=== PATIENT | male | born 1955 | race African-American/Black ===

== ENCOUNTER 2016-10-17 17:26 | Emergency (ER) | payer OTHER ==
[~2016-10-17] VITALS: Ht 185.4 cm; Wt 80.0 kg
[~2016-10-17 17:26] MED LIST: 1-ME1LIQ PO; ASPI81TA82 PO; CREON24 PO; LISI40TA PO; LOMO PO; METO25 PO; TAB-TAB PO; ULTR50TA PO; VITA500C PO; WELL150T PO; ZOFR4TAB3 SL
[2016-10-17 17:31] VITALS: BP 185/98; PULSE 79; RESP 12; TEMP 98.1; O2SAT 98
[2016-10-17 18:44] LABS: AUTOMATED NEUTROPHIL # 3.8 TH/MM3 (1.8-7.7); BASOPHIL % 0.8 % (0.0-2.0); EOSINOPHIL # 0.3 TH/MM3 (0-0.4); HEMO FLAGS DIFF FINAL; LYMPHOCYTE # 1.9 TH/MM3 (1.0-4.8); MEAN CELL VOLUME 83.3 FL (80.0-100.0); MEAN CORPUSCULAR HEMOGLOBIN 27.6 PG (27.0-34.0); MEAN CORPUSCULAR HGB CONC 33.2 % (32.0-36.0); MONO % 4.5 % (0.0-8.0); NEUT % 60.7 % (16.0-70.0); PLATELET COUNT 121 TH/MM3 (150-450); RED BLOOD COUNT 4.32 MIL/MM3 (4.50-5.90); WHITE BLOOD COUNT 6.3 TH/MM3 (4.0-11.0)
[2016-10-17 19:08] LABS: ANION GAP 5 MEQ/L (5-15); BICARBONATE 27.4 MEQ/L (21.0-32.0); BLOOD UREA NITROGEN 15 MG/DL (7-18); CHLORIDE 110 MEQ/L (98-107); GLOMERULAR FILTRATION RATE 106 ML/MIN (>89); POTASSIUM 3.5 MEQ/L (3.5-5.1); SODIUM (NA) 142 MEQ/L (136-145)
[2016-10-17 19:15] LABS: CREATINE KINASE 66 U/L (39-308)
[2016-10-17] MEDS ORDERED: AMLO10TA2 PO (22:38)
[2016-10-17] MEDS ORDERED: ASPI325T PO (22:38)
[2016-10-17] MEDS ORDERED: LISI40TA PO (22:38)
[2016-10-17] MEDS ORDERED: CREON24 PO (22:38)
[2016-10-17] MEDS ORDERED: SODIUM CHLORIDE 0.9% FLUSH 5 ML FLUSH IVF PRN (22:45)
[2016-10-17] MEDS ORDERED: ONDANSETRON HCL 4 MG/2 ML VIAL IV PUSH ONE (23:15)
[2016-10-17] MEDS ORDERED: HYDROmorphone HCL PF 1 MG/ML VIAL IV PUSH ONE (23:15)
[2016-10-17] MEDS ORDERED: SODIUM CHLORID 0.9% 500 ML INJ 500 ML IV ONE (23:15)
[2016-10-17 23:28] VITALS: RESP 18
[2016-10-17] MEDS ORDERED: IOHEXOL 350 MG/ML 10 ML VIAL (for RAD DIAG) IV ONE (23:33)
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
[2016-10-17 23:49] LABS: ALT (GPT) 25 U/L (12-78); AST (GOT) 19 U/L (15-37)
[2016-10-17 23:53] LABS: ALKALINE PHOSPHATASE 120 U/L (45-117); INDIRECT BILIRUBIN 0.3 MG/DL (0.0-0.8); TOTAL BILIRUBIN ADULT 0.4 MG/DL (0.2-1.0)
--- NOTE | 2016-10-18 00:04 | RADRPT ---
EXAM DATE/TIME: 10/17/2016 23:29 [place] COMPARISON: CT ABDOMEN & PELVIS W CONTRAST, October 13, 2015, 19:59. INDICATIONS : Lower abdominal pain for three days. IV CONTRAST: 95 cc Omnipaque 350 (iohexol) IV ORAL CONTRAST: No oral contrast ingested. RADIATION DOSE: 6.02 CTDIvol (mGy) MEDICAL HISTORY : Hepatitis B. Pancreatitis. Hypertension.CVA, cardiovascular disease SURGICAL HISTORY : partial pancreas removed ENCOUNTER: Initial ACUITY: 3 days PAIN SCALE: 8/10 LOCATION: lower quadrant abdomen TECHNIQUE: Volumetric scanning of the abdomen and pelvis was performed. Using automated exposure control and ad justment of the mA and/or kV according to patient size, radiation dose was kept as low as reasonably achievable to obtain optimal diagnostic quality images. FINDINGS: LOWER LUNGS: The visualized lower lungs are clear. LIVER: Homogeneous density without lesion. There is dilation of the biliary tree. There is air in the bilia ry tree. Stent in the common bile duct. SPLEEN: Borderline prominent. PANCREAS: Fullness in the pancreatic head region again noted. Extensive dilatation of the main pancreatic duct. KIDNEYS: Normal in size and shape. There is no mass, stone or hydronephrosis. Bilateral renal low densities. ADRENAL GLANDS: Within normal limits. VASCULAR: There is no aortic aneurysm. BOWEL/MESENTERY: The stomach, small bowel, and colon demonstrate no acute abnormality. Postsurgical changes in the rig ht lower quadrant. No bowel obstruction. No inflammatory changes There is no free intraperitoneal air or fluid. ABDOMINAL WALL: Within normal limits. RETROPERITONEUM: There is no lymphadenopathy. BLADDER: No wall thickening or mass. REPRODUCTIVE: Within normal limits. INGUINAL: There is no lymphadenopathy or hernia. MUSCULOSKELETAL: Within normal limits for patient age. CONCLUSION: 1. Stent in the common bile duct with air in the biliary tree. 2. Diffuse dilatation of pancreatic duct with some slight prominence of the pancreatic head but uncha nged. 3. No acute inflammatory process. Delfino Short MD on October 17, 2016 at 23:50 Board Certified Radiologist. This report was verified electronically.
[2016-10-18] MEDS ORDERED: ONDANSETRON HCL 4 MG/2 ML VIAL IV PUSH ONE (00:45)
[2016-10-18] MEDS ORDERED: SODIUM CHLORID 0.9% 500 ML INJ 500 ML IV ONE (00:45)
[2016-10-18 01:36] LABS: BACTERIA, URINE FEW /hpf; BLOOD, URINE SMALL (NEG); COMMENT (UR) CULTURE INDICATED; CULTURE IF INDICATED CULTURE INDICATED; GLUCOSE,URINE NEG (NEG); KETONE, URINE NEG (NEG); NITRITE,URINE NEG (NEG); SQUAMOUS EPITHELIAL CELL URINE 1 /hpf (0-5); URINE COLOR YELLOW (YELLW/STRAW)
[2016-10-18] MEDS ORDERED: BACT800T5 PO (01:43)
[2016-10-18] MEDS ORDERED: MIRA33504 PO (01:43)
[2016-10-18] MEDS ORDERED: SULFAMETHOXAZOLE-TRIMETHOPRIM DS 800-160 MG TAB PO ONE (01:45)
--- NOTE | 2016-10-18 13:56 | EKG ---
Date Performed: 10/17/2016 Time Performed: 18:18:59 PTAGE: 60 years EKG: Sinus rhythm WITH SINUS ARRHYTHMIA NORMAL ECG INTERPRETATION BASED ON A DEFAULT AGE OF 41 YEARS PREVIOUS TRACING : 10/13/2015 17.10 DOCTOR: Reinaldo Mckeon Interpretating Date/Time 10/18/2016 13:55:33
== END 2016-10-18 03:21 | disposition home or self-care (01) ==
LOC: NEPC 17:26
DX: N39.0 Urinary tract infection, site not specified (principal); B96.20 Unspecified Escherichia coli [E. coli] as the cause of diseases classified elsewhere; R31.9 Hematuria, unspecified; K59.00 Constipation, unspecified; I10 Essential (primary) hypertension; F17.200 Nicotine dependence, unspecified, uncomplicated; I49.8 Other specified cardiac arrhythmias
CPT/HCPCS: 74177; 80048; 80076; 81001; 82550; 83605; 83690; 84484; 85025; 86140; 87077; 87086; 87186; 93005; 96361; 96374; 96375; 96376; 99284; J1170; J2405; J7040; Q9967

== ENCOUNTER 2017-08-02 11:18 | Inpatient (IN) | payer MEDICARE, OTHER ==
[~2017-08-02] VITALS: Ht 185.4 cm; Wt 66.0 kg
[2017-08-02] VITALS (11 sets, daily range): BP systolic 110–156; BP diastolic 62–90; PULSE 90–114; RESP 18–20; TEMP 97.8–99.9; O2SAT 98–100
[~2017-08-02 11:18] MED LIST changes: -1-ME1LIQ PO; +AMLO10TA2 PO; +ASPI325T PO; -ASPI81TA82 PO; +BACT800T5 PO; -LOMO PO; -METO25 PO; +MIRA33504 PO; -TAB-TAB PO; -ULTR50TA PO; -VITA500C PO; -WELL150T PO; -ZOFR4TAB3 SL
[2017-08-02] MEDS ORDERED: SODIUM CHLOR 0.9% 1000 ML INJ 1,000 ML IV SCH ×2 (11:32→13:11)
[2017-08-02] MEDS ORDERED: ATOR20TA15 PO (11:38)
[2017-08-02] MEDS ORDERED: HYDR25TA5 PO (11:38)
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
[2017-08-02] MEDS ORDERED: MORPHINE SULFATE 4 MG/ML INJ IV PUSH ONE (11:45)
[2017-08-02] MEDS ORDERED: ONDANSETRON HCL 4 MG/2 ML VIAL IVP ONE (11:45)
[2017-08-02] MEDS ORDERED: HEPARIN SODIUM - IV 10,000 UNITS/10 ML VIAL IV PUSH STA (11:52)
[2017-08-02] MEDS ORDERED: NITROGLYCERIN 0.4 MG SL 25 TABS/BTL SL STA (11:52)
[2017-08-02] MEDS ORDERED: ASPIRIN 81 MG CHEW TAB PO STA (11:52)
[2017-08-02 12:01] LABS: AUTOMATED NEUTROPHIL # 7.5 TH/MM3 (1.8-7.7); BASOPHIL % 0.4 % (0.0-2.0); EOSINOPHIL # 0.1 TH/MM3 (0-0.4); EOSINOPHIL % 1.1 % (0.0-4.0); HEMATOCRIT 32.5 % (39.0-51.0); HEMO FLAGS DIFF FINAL; LYMPH % 10.6 % (9.0-44.0); MEAN CELL VOLUME 85.8 FL (80.0-100.0); MEAN CORPUSCULAR HEMOGLOBIN 29.5 PG (27.0-34.0); MEAN CORPUSCULAR HGB CONC 34.3 % (32.0-36.0); MONO % 8.6 % (0.0-8.0); NEUT % 79.3 % (16.0-70.0); PLATELET COUNT 153 TH/MM3 (150-450); RED BLOOD COUNT 3.79 MIL/MM3 (4.50-5.90); RED CELL DISTRIBUTION WIDTH 13.6 % (11.6-17.2); WHITE BLOOD COUNT 9.5 TH/MM3 (4.0-11.0)
[2017-08-02] MEDS ORDERED: MIDAZOLAM HCL 2 MG/2 ML VIAL ONE (12:07)
[2017-08-02] MEDS ORDERED: SODIUM CHLORID 0.9% 500 ML INJ 500 ML ONE (12:07)
[2017-08-02] MEDS ORDERED: HEPARIN-NS/PF INJ 1,000 ML ONE (12:07)
[2017-08-02] MEDS ORDERED: NITROGLYCERIN INJ 5 ML ONE (12:08)
[2017-08-02] MEDS ORDERED: HEPARIN SODIUM - IV 10,000 UNITS/10 ML VIAL ONE (12:08)
--- NOTE | 2017-08-02 12:11 | RADRPT ---
EXAM DATE/TIME: 08/02/2017 11:50 [place] COMPARISON: CHEST SINGLE AP, October 13, 2015, 17:37. INDICATIONS : Stemi alert., chest pain x 3 weeks. MEDICAL HISTORY : Hepatitis B. Pancreatitis. Hypertension. CVA SURGICAL HISTORY : partial pancreas removed ENCOUNTER: Initial ACUITY: 3 weeks PAIN SCORE: 10/10 LOCATION: Bilateral chest FINDINGS: A single view of the chest demonstrates the lungs to be symmetrically aerated without evidence of mas s, infiltrate or effusion. The cardiomediastinal contours are unremarkable. Osseous structures are intact. CONCLUSION: 1. No acute cardiopulmonary disease. Gómez Sanchez MD on August 02, 2017 at 12:09 Board Certified Radiologist. This report was verified electronically.
[2017-08-02 12:24] LABS: ALT (GPT) 166 U/L (12-78); ANION GAP 10 MEQ/L (5-15); AST (GOT) 75 U/L (15-37); BICARBONATE 24.3 MEQ/L (21.0-32.0); BLOOD UREA NITROGEN 46 MG/DL (7-18); CHLORIDE 101 MEQ/L (98-107); GLOMERULAR FILTRATION RATE 43 ML/MIN (>89); POTASSIUM 3.9 MEQ/L (3.5-5.1); SODIUM (NA) 135 MEQ/L (136-145)
[2017-08-02 12:27] LABS: ALKALINE PHOSPHATASE 340 U/L (45-117); TOTAL BILIRUBIN ADULT 0.8 MG/DL (0.2-1.0)
[2017-08-02] MEDS ORDERED: CLOPIDOGREL 300 MG TAB ONE (12:55)
[2017-08-02] MEDS ORDERED: oxyCODONE/ACETAMINOPHEN 5 MG/325 MG TAB PO PRN (13:15)
[2017-08-02] MEDS ORDERED: ATROPINE SULFATE 1 MG/ML VIAL IV PUSH PRN (13:15)
[2017-08-02] MEDS ORDERED: ACETAMINOPHEN 325 MG TAB PO PRN (13:15)
[2017-08-02] MEDS ORDERED: MISC INFORMATION XX ONE (13:15)
[2017-08-02] MEDS ORDERED: SODIUM CHLOR 0.9% 250 ML INJ 250 ML IV PRN (13:15)
[2017-08-02] MEDS ORDERED: MORPHINE SULFATE 2 MG/ML INJ IV PUSH PRN (13:15)
[2017-08-02] MEDS ORDERED: ONDANSETRON HCL 4 MG/2 ML VIAL IV PUSH PRN (13:15)
--- NOTE | 2017-08-02 13:27 | CATHPROC ---
[employer] HIS Report Study Information Study Number Admission Scheduled Start Study Start [id number] Aug 02 2017 11:18AM 08/02/2017 Aug 02 2017 12:05PM [place] Service Cardiac Catheterization Admit Source Facility Department Emergency department [facility] - Administration Manager Physician and Clinical Staff Initial Pollo Aguilar Form Presser aSmra Brooks,SONDRA Form Presser Marisela Dudley,SONDRA Recorder Jany Vila,RT(R) Scrub Cheryl Rich,PIANO ASSEMBLER TECH2 Procedures Performed Procedure Location (Site) Vessel Name Coronary Angiograms LCA Left Coronary Coronary Angiograms RCA Right Coronary L Heart Cath PTCA LAD Prox Left Coronary Stent LAD Prox Left Coronary Wire insertion Fem Art (right) Femoral Art Equipment Time Cellar Packer Description Size Mfg Part Number Used/Scraped [id number] 12:29 [employer] WIRE, ASAPost-i PROWATER 180CM 180CM Used *[id number] TRANSDUCER, TRUWAVE [id number] 12:07 WHITE ULLOA * Used W/STOCKCOCK *[id number] INTRODUCER SET, [id number] 12:19 [employer]. FR 5 Used MICROPUNCTURE *[id number] *[id number] *[id number] 12:07 MEDLINE INDUSTRIES PACK, CCL CUSTOM * Used *[id number] 12:35 MEDTRONIC BALLOON, 2.0 X 12MM EUPHORA 12MM Used *[id number] BALLOON, 2.75 X 12MM NC [id number] 12:43 MEDTRONIC 12MM Used EUPHORA *[id number] BALLOON, 3.0 X 8MM NC [id number] 12:46 MEDTRONIC 8MM Used EUPHORA *[id number] 12:40 MEDTRONIC STENT, 2.5 18 INTEGRITY 2.5 18 Used *[id number] 12:28 MEDTRONIC/AVE EBU 3.5 Z2 GUIDE CATHETER FR 6 Used *[id number] 12:38 [employer] MEDICAL 30 STEPH INDEFLATOR Used *[id number] 12:07 [employer] MEDICAL WIRE, 3MMJ .035 180CM 180CM Used *[id number] 12:07 NAMIC MANIFOLD, 4 PORT * Used *[id number] 12:07 NYCOMED OMNIPAQUE, 350 MG, 150ML 150ML [id number] Used [id number] 12:07 FROST MEDICAL BLANKET,WARM AIR CCL * Used *[id number] 12:15 TERUMO MEDICAL SHEATH, FR6 TERUMO (10CM) FR 6 Used *[id number] Equipment Model, Serial, Lot Number and Expiration Data Description Model Number Serial Number Lot Number Expiration Date STENT, 2.5 18 INTEGRITY [id number] 10-31-2018 History: Current Medications Medication Dosage/Unit Route Frequency Last Date/Time Taken HEPARIN Coumadin ASA History: Allergies Allergy Reaction No Known Allergies History: Risk Factors Family History of Hypertension Dyslipidemia Previous IA Previous Heart Failure Premature CAD Yes Yes No No No Prior Valve Prior PCI Prior CABG Surgery No No No Cerebrovascular Peripheral Artery Chronic Lung On Dialysis Diabetes Disease Disease Disease No No No No No History: Symptoms/Diagnosis Selection Items Chest pain History: Stress Tests Stress or Imaging Studies Performed No History: Other Current Smoker Method Packs a Day Years Used Pack Years Yes Cigarettes 1 45 45 Labs Hgb (g/dl) Platelets (thousands) 11.60-17.00 150.00-450.00 11.2 153 Glucose (mg/dl) BUN (mg/dl) Creatinine (mg/dl) BUN:Creatinine (1:x) 74.00-106.00 7.00-18.00 0.50-1.30 10.00-20.00 163 46 1.9 24.2 Na (meq/l) K (meq/l) 136.00-145.00 3.50-5.10 135 3.9 CPK-MB (ng/ML) 0.50-3.60 Not Drawn Medication Medication Total Dose (Bolus/Oral) Medication Total Dosage/Unit 1% XYLOCAINE 20 mL FENTANYL 25 mcg HEPARIN 4700 units OXYGEN 2 l/min PLAVIX 600 mg VERSED 0.5 mg Medications (Bolus/Oral) Medication Time Given Dosage/Unit Administered By Reason 08/02/2017 12:05:00 OXYGEN 2 l/min Marisela Dudley PM 2 l/min OXYGEN given in lab by Marisela Dudley, SONDRA via Nasal. 08/02/2017 12:15:00 VERSED 0.5 mg Marisela Dudley PM 0.5 mg VERSED given in lab by Marisela Dudley, SONDRA in Left Antecubital via Peripheral IV. Ordered by Pollo Doe 08/02/2017 12:16:00 FENTANYL 25 mcg Marisela Dudley 25 mcg FENTANYL given in lab by Marisela Dudley, RN in Left Antecubital via Peripheral IV. Ordered by Pollo Alfredo 08/02/2017 12:16:46 1% XYLOCAINE 20 mL Pollo Alfredo 20 mL 1% XYLOCAINE given in lab by Pollo Alfredo in Right Groin via Subcutaneous. 08/02/2017 12:28:36 HEPARIN 4700 units Pollo Alfredo 4700 units HEPARIN given in lab by Pollo Alfredo in Left Antecubital via Peripheral IV. PLAVIX 08/02/2017 1:00:00 PM 600 mg Marisela Dudley 600 mg PLAVIX given in lab by Marisela Dudley, RN via Oral. Medication (Drip) Medication Time Given Dosage/Unit Concentration/Unit Diluent (ml) Solution 08/02/2017 12:06:00 IV Solutions 50 mL (IV) NaCl .9 PM IV Solutions given in lab by Marisela Dudley, SONDRA in Right Antecubital via Peripheral IV. Pump/Drip Fl ow using NaCl .9. Initial Case Assessment Cardiovascular HR Rhythm NIBP Chest Pain 113 tachy 138/91 10 Edema Present Skin color Skin None Normal Warm Dry Circulatory - Right Pulses Dorsalis Pedis Femoral 2 2 Scale (0,1,2,3,4,d) Circulatory - Left Pulses Dorsalis Pedis Femoral 1 Scale (0,1,2,3,4,d) Neurological State Oriented to time-place- Alert Moves all extremities person Respiration - General Respiration Rate SpO2 (%) (B/min) 19 100 Final Case Assessment Cardiovascular HR Rhythm NIBP Chest Pain 107 tachy 125/85 0 Edema Present Skin color Skin None Normal Warm Dry Circulatory - Right Pulses Dorsalis Pedis Femoral 2 2 Scale (0,1,2,3,4,d) Circulatory - Left Pulses Dorsalis Pedis Femoral 1 Scale (0,1,2,3,4,d) Neurological State Oriented to time-place- Alert Moves all extremities person Respiration - General Respiration Rate SpO2 (%) O2 (lpm) (B/min) 14 100 2 Chronological Log Time Study Chronological Log 12:03:00 Patient arrived via Bed. 12:05:00 MD arrived. 12:05:00 2 l/min OXYGEN given in lab by Marisela Dudley, RN via Nasal. 12:05:17 Patient Name, D.O.B, / Armband Verified By R.N. 12:05:22 Consent signed by the physician and the patient and verified by the Administration Manager staff. 12:05:23 Pre-op and post- op instructions given; patient acknowledges understanding of instructions. 12:05:28 Patient has been NPO for Less than 6Hrs. 12:05:29 Skin Breakdown- open ulcer on left groin Vitals capture started with the following parameters, Patient=Adult, Interval=5 min, Initial Pr vpdfic=476 mmHg, 12:05:35 Deflation Rate=5 mmHg, Cuff placed on Left Arm 12:05:45 Patient Warmer Placed on the Table. 12:05:58 A # 18 IV was noted in the Antecubital (right). Grade = 0 12:05:58 A # 20 IV was noted in the Antecubital (left). Grade = 0 12:06:00 IV Solutions given in lab by Marisela Dudley, RN in Right Antecubital via Peripheral IV. Pu mp/Drip Flow using NaCl .9. 12:06:07 NH=653 bpm, WJGI=519/91 mmhg, BzO6=760.0 %, Resp=15 B/min Assessment: Initial Case, RX=947 BPM, Rhythm=tachy, NGQS=911/91 mmhg, Chest Pain=10, Edema=None , Color=Normal, Skin = Warm, Dry Right Pulses: Popeye Ped=2, Femoral=2 12:06:18 Left Pulses: Popeye Ped=1 Neurological: State=Alert, Ox3, MULLIGAN Respiration: Resp=19 B/min, GjK1=652 % 12:08:58 Right groin prepped with 2% chlorhexidine, and draped after a 3 min. waiting time. 12:11:06 QO=150 bpm, SATX=568/90 mmhg, XjA8=982.0 %, Resp=17 B/min 12:12:50 Reference ECG taken 12:12:58 Pressure channel 1 zeroed. Time Out. Correct patient, correct procedure, correct physician, power injector loaded, or not loaded with contrast with 12:15:00 surgical team present. Time Out Concurred by MD and individual staff in procedure. 0.5 mg VERSED given in lab by Marisela Dudley, SONDRA in Left Antecubital via Peripheral IV. Ordere d by Pollo Alfredo 12:15:00 G. 25 mcg FENTANYL given in lab by Marisela Dudley, SONDRA in Left Antecubital via Peripheral IV. Orde red by Juni, 12:16:00 Pollo Carroll. 12:16:03 HR=98 bpm, XYMS=310/92 mmhg, SvP7=434.0 %, Resp=16 B/min 12:16:43 Case Start 12:16:46 20 mL 1% XYLOCAINE given in lab by Pollo Alfredo in Right Groin via Subcutaneous. 12:17:56 Access site was Right Femoral Artery. 12:18:50 A INTRODUCER SET, MICROPUNCTURE FR 5 was advanced into the Fem Art (right) using the Percut aneous technique. A SHEATH, FR6 TERUMO (10CM) FR 6 was exchanged in the Fem Art (right). This was necessary in or doretha to 12:18:57 accomodate a larger catheter. 12:19:31 An injection in the Fem Art (right) was made through the SHEATH, FR6 TERUMO (10CM) FR 6. A JR 4.0 GUIDE CATHETER FR 6 was advanced over a wire. OMNIPAQUE, 350 MG, 150ML 150ML was used for 12:20:56 injections. 12:21:04 FY=406 bpm, TIJA=440/91 mmhg, OiR0=172.0 %, Resp=15 B/min Recorded Pressure: LV, ES=679, Condition=Condition 1 12:21:27 (Left Ventricle) LV 100/1/9 Recorded Pressure: LV, Ao, BP=470, Condition=Condition 1 12:21:35 (Left Ventricle) LV 100/2/8, (Aorta) Ao 105/67/85 12:22:18 The RCA was injected and visualized at various angles. OMNIPAQUE, 350 MG, 150ML 150ML used . 12:23:10 Catheter was removed A JL 4.0 INFINITI CATHETER FR 6 was advanced over a wire. OMNIPAQUE, 350 MG, 150ML 150ML was us ed for 12:23:17 injections. Recorded Pressure: Ao, KU=459, Condition=Condition 1 12:24:49 (Aorta) Ao 101/67/83 12:24:59 The LCA was injected and visualized at various angles. OMNIPAQUE, 350 MG, 150ML 150ML used . 12:26:06 IK=916 bpm, IJTC=859/76 mmhg, LxV6=522.0 %, Resp=13 B/min 12:28:36 4700 units HEPARIN given in lab by Pollo Alfredo in Left Antecubital via Peripheral I V. 12:28:46 Catheter was removed A EBU 3.5 Z2 GUIDE CATHETER FR 6 was advanced over a wire. OMNIPAQUE, 350 MG, 150ML 150ML was u sed for 12:30:16 injections. 12:31:04 AD=101 bpm, NPNR=485/81 mmhg, PvU7=322.0 %, Resp=15 B/min 12:31:57 A WIRE, ASAHI PROWATER 180CM 180CM was inserted via Fem Art (right). 12:34:34 Interventional wire has crossed the lesion 12:35:23 Activated Clotting Time Drawn 12:36:06 RK=876 bpm, IBQU=033/81 mmhg, OnW8=438.0 %, Resp=14 B/min A BALLOON, 2.0 X 12MM EUPHORA 12MM was inserted over WIRE, ASAHI PROWATER 180CM 180CM via the F em Art 12:36:32 (right). A BALLOON, 2.0 X 12MM EUPHORA 12MM over a WIRE, ASAHI PROWATER 180CM 180CM in the LAD Prox was inflated 12:37:16 using a 30 STEPH INDEFLATOR at 12 steph for 14 sec. 12:39:14 Balloon Removed. An STENT, 2.5 18 INTEGRITY 2.5 18 Bare Metal Stent was inserted through a EBU 3.5 Z2 GUIDE CATH ETER FR 6 over 12:40:18 a WIRE, ASAHI PROWATER 180CM 180CM. 12:41:05 HL=386 bpm, SMRE=363/82 mmhg, SpO2=99.0 %, Resp=15 B/min A STENT, 2.5 18 INTEGRITY 2.5 18 was deployed using a 30 STEPH INDEFLATOR at 12 atmospheres for 2 0 seconds in 12:41:46 the LAD Prox. 12:42:15 ACT (Normal Range 90-180) = 369 12:42:48 Delivery device removed A BALLOON, 2.75 X 12MM NC EUPHORA 12MM was inserted over WIRE, ASAHI PROWATER 180CM 180CM via t he Fem 12:43:55 Art (right). A BALLOON, 2.75 X 12MM NC EUPHORA 12MM over a WIRE, ASAHI PROWATER 180CM 180CM in the LAD Prox was 12:44:34 inflated using a 30 STEPH INDEFLATOR at 12 steph for 18 sec. A BALLOON, 2.75 X 12MM NC EUPHORA 12MM over a WIRE, ASAHI PROWATER 180CM 180CM in the LAD Prox was 12:45:10 inflated using a 30 STEPH INDEFLATOR at 20 steph for 18 sec. 12:46:06 HR=98 bpm, IXCY=522/78 mmhg, SpO2=99.0 %, Resp=12 B/min 12:46:09 Balloon Removed. A BALLOON, 3.0 X 8MM NC EUPHORA 8MM was inserted over WIRE, ASAHI PROWATER 180CM 180CM via the Fem Art 12:46:50 (right). A BALLOON, 3.0 X 8MM NC EUPHORA 8MM over a WIRE, ASAHI PROWATER 180CM 180CM in the LAD Prox was 12:47:08 inflated using a 30 STEPH INDEFLATOR at 14 steph for 13 sec. A BALLOON, 3.0 X 8MM NC EUPHORA 8MM over a WIRE, ASAHI PROWATER 180CM 180CM in the LAD Prox was 12:47:38 inflated using a 30 STEPH INDEFLATOR at 20 steph for 18 sec. 12:48:18 Balloon Removed. A BALLOON, 3.0 X 8MM NC EUPHORA 8MM was inserted over WIRE, ASAHI PROWATER 180CM 180CM via the Fem Art 12:50:48 (right). A BALLOON, 3.0 X 8MM NC EUPHORA 8MM over a WIRE, ASAHI PROWATER 180CM 180CM in the LAD Prox was 12:50:59 inflated using a 30 STEPH INDEFLATOR at 14 steph for 10 sec. 12:51:03 HR=99 bpm, YQCS=479/80 mmhg, FpO7=294.0 %, Resp=12 B/min A BALLOON, 3.0 X 8MM NC EUPHORA 8MM over a WIRE, ASAHI PROWATER 180CM 180CM in the LAD Prox was 12:51:22 inflated using a 30 STEPH INDEFLATOR at 20 steph for 10 sec. A BALLOON, 3.0 X 8MM NC EUPHORA 8MM over a WIRE, ASAPost-i PROWATER 180CM 180CM in the LAD Prox was 12:51:59 inflated using a 30 STEPH INDEFLATOR at 24 steph for 10 sec. 12:52:36 Balloon Removed. 12:53:32 Wire removed 12:54:08 Catheter was removed 12:54:41 Case End 12:56:04 QB=514 bpm, XPQS=377/85 mmhg, ZfR8=214 %, Resp=15 B/min 13:00:00 600 mg PLAVIX given in lab by Marisela Dudley, SONDRA via Oral. 13:01:07 JM=265 bpm, OQCX=494/85 mmhg, CaH3=369.0 %, Resp=14 B/min Assessment: Final Case, IV=934 BPM, Rhythm=tachy, CDCH=052/85 mmhg, Chest Pain=0, Edema=None, Color=Normal, Skin = Warm, Dry Right Pulses: Popeye Ped=2, Femoral=2 13:01:46 Left Pulses: Popeye Ped=1 Neurological: State=Alert, Ox3, MULLIGAN Respiration: Resp=14 B/min, VgY5=334 %, O2=2 lpm 13:02:36 In the Fem Art (right) the SHEATH, FR6 TERUMO (10CM) FR [address] by Pollo Alfredo 13:02:43 Sterile dressing applied to site 13:02:44 No case complications noted. 13:02:45 Cine recording checked. 13:02:47 Bedside Report will be given. 13:02:51 Contrast Scanned 13:02:54 A Left Heart Cath was performed. 13:06:33 YY=000 bpm, DOXT=075/87 mmhg, SpO2=99 %, Resp=15 B/min 13:11:09 IK=559 bpm, MIHY=243/80 mmhg, GdG0=516 %, Resp=14 B/min 13:16:08 OH=863 bpm, IKDM=706/88 mmhg, EkM3=002.0 %, Resp=16 B/min 13:21:07 OD=622 bpm, NEHR=727/89 mmhg, FuM4=951.0 %, Resp=13 B/min 13:26:00 [facility] - Contrast Media Used In Study Contrast Total Opened (mL) Total Used (mL) Total Wasted (mL) Omnipaque 125 125 0 End Study - Maximum Contrast Load Max Contrast Load (mL) 175.8 End Study - Radiation Exposure Fluoro Time (minutes) 7.8 End Study - Patient Disposition Complications Transferred To Interventional Outcome No Telemetry Bed successful
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
[2017-08-02] MEDS ORDERED: PILL SPLITTER OTHER PRN (15:00)
[2017-08-02] MEDS ORDERED: IOHEXOL 350 MG/ML 50 ML BTL (for Cath Lab) OTHER ONE (15:52)
[2017-08-02] MEDS ORDERED: IOHEXOL 350 MG/ML 100 ML BTL (for Cath Lab) OTHER ONE (15:52)
[2017-08-02] MEDS: METOPROLOL TARTRATE 25 MG TAB PO SCH (20:26)
[2017-08-03] VITALS (28 sets, daily range): BP systolic 115–132; BP diastolic 72–83; PULSE 79–107; RESP 16–18; TEMP 97.1–98.6; O2SAT 97–100
[2017-08-03 05:48] LABS: AUTOMATED NEUTROPHIL # 3.6 TH/MM3 (1.8-7.7); BASOPHIL % 0.5 % (0.0-2.0); EOSINOPHIL # 0.1 TH/MM3 (0-0.4); EOSINOPHIL % 1.6 % (0.0-4.0); HEMATOCRIT 26.4 % (39.0-51.0); HEMO FLAGS DIFF FINAL; LYMPH % 18.7 % (9.0-44.0); MEAN CELL VOLUME 84.7 FL (80.0-100.0); MEAN CORPUSCULAR HEMOGLOBIN 28.4 PG (27.0-34.0); MEAN CORPUSCULAR HGB CONC 33.5 % (32.0-36.0); MONO % 9.9 % (0.0-8.0); NEUT % 69.3 % (16.0-70.0); PLATELET COUNT 132 TH/MM3 (150-450); RED BLOOD COUNT 3.12 MIL/MM3 (4.50-5.90); RED CELL DISTRIBUTION WIDTH 13.7 % (11.6-17.2); WHITE BLOOD COUNT 5.2 TH/MM3 (4.0-11.0)
[2017-08-03 06:28] LABS: BICARBONATE 21.2 MEQ/L (21.0-32.0); HDL CHOLESTEROL 36.6 MG/DL (40.0-60.0)
--- NOTE | 2017-08-03 07:29 | MA ---
cc: POLLO LOW DO DATE OF PROCEDURE August 02, 2017 PROCEDURE Left heart catheterization, coronary angiogram, bare metal stent (2.5 x 18) to the LAD, moderate sedation 38 minutes. PREPROCEDURE DIAGNOSIS Acute anterior STEMI, chest pain. POSTPROCEDURE DIAGNOSIS Acute anterior STEMI, status post bare metal stent (2.5 x 18) to the LAD. MEDICATIONS 1. Versed 0.5 mg. 2. Fentanyl 25 mcg. 3. Heparin 4700 units. 4. Plavix 600 mg. CONTRAST USED 125 cc. FLUOROSCOPY 7.8 minutes MODERATE SEDATION 38 minutes ESTIMATED BLOOD LOSS 20 cc PROCEDURAL SUMMARY Marcelino Jean-Baptiste is a pleasant 61-year-old male who presented to [facility] Emergency Room on August 02, 2017, complaining of chest pain as well as abdominal pain. Upon arrival he was found to have ST elevations in the anterior leads and I was called emergently to evaluate the patient. Because of his anterior ST elevation myocardial infarction, he was taken emergently to the cardiac catheterization lab. The risks, benefits and alternatives were explained to him and he consented as such. He was brought to lab and prepped in the usual sterile fashion. The right femoral artery was accessed using a modified Seldinger technique and placement of a 6-Lithuanian sheath. This was easily aspirated and flushed. A JR-4 was advanced over a J-wire to the ascending aorta and across the aortic valve for measurement of left ventricular pressure. This was pulled back across the aortic valve showing no significant gradient of aortic stenosis. JR-4 was used for selective angiography of the right coronary artery. This was exchanged out for a JL-4 which was used for selective angiography of the left coronary artery. Please see notes below for intervention. At the end of the case the sheath was sutured in place with a plan for removal once ACT values were appropriate. 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 FINDINGS Left main is a normal-sized vessel with distal tapering of 10%. Otherwise no significant disease. It bifurcates into an LAD and circumflex. LAD is a normal-size vessel with 100% occlusion in the proximal portion. It does give off one diagonal before this with 40% ostial disease in a small vessel. Left circumflex is a normal-sized vessel with mild luminal irregularities throughout the proximal portion. It gives off two obtuse marginals with 40% ostial stenosis. RCA is a small to moderate-sized vessel with mild luminal irregularities throughout the proximal portion. Distally there is noted to be some collaterals to the distal portion of the LAD. LVEDP is 8. INTERVENTION The patient was given heparin as an anticoagulant. An EBU 3.5 guide catheter was then engaged in the left main. A Prowater wire was then advanced into the distal portion of the LAD. A Compliant balloon (2 x 12) was used to predilate the lesion. Because of the patient's questionable history of pancreatic cancer for which they now think is due to chronic pancreatitis but he continues to have workup for this, as well as multiple sphincterotomies and stent placement, I felt that a bare metal stent was more appropriate. A bare metal stent (2.5 x 18) was then advanced and inflated over the lesion. A Non-Compliant balloon (2.75 x 12) was then used to post-dilate the lesion. The ppp-lz-oshyoj portion did not seem to be expanded as well as it should be due to the size and so a Non-Compliant balloon (3 x 8) was then used to post-dilate the mid to proximal portion of the stent. Post-angiography shows a well opposed stent with no perforations or dissections. The midportion of the LAD does have a 50% lesion in an overall small vessel as well as a 90% lesion at the apex but distal to this is supplied by collaterals to the RCA. Guide catheter was removed over a J-wire. The patient was given Plavix 600 mg while in the lab. IMPRESSIONS 1. Acute anterior STEMI status post bare metal stent (2.5 x 18) to the proximal LAD which was postdilated to 3 mm. 2. Chest pain concerning for coronary insufficiency. RECOMMENDATIONS 1. Mr. Jean-Baptiste presented with acute anterior STEMI and was stented with bare metal stent. He will be recommended aspirin and Plavix therapy. 2. We will plan on placing him on beta wilson and statin therapy. 3. He previously was on an BINTA inhibitor but this will be held due to his significant acute kidney injury at this time. This can be reevaluated before discharge for consideration of placing him on BINTA inhibitor or ARB therapy. 4. We will check a 2-D echo to look at his overall left ventricular function, cardiac structure and possible valvopathies. 5. We will plan on him being in the hospital for another 48 hours post TX. Thank you for allowing me to see Marcelino Jean-Baptiste. If there are any questions please do not hesitate to call. Pollo Low DO VGP/SSB /12:47 AM /7:08 AM
[2017-08-03] MEDS ORDERED: HEPARIN SODIUM - SQ 10,000 UNITS/ML VIAL SQ SCH (09:00)
[2017-08-03] MEDS: ASPIRIN 81 MG CHEW TAB PO SCH (09:18)
[2017-08-03] MEDS: CLOPIDOGREL 75 MG TAB PO SCH (09:18)
[2017-08-03] MEDS: METOPROLOL TARTRATE 25 MG TAB PO SCH ×2 (09:20→21:21)
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
[2017-08-03] MEDS: oxyCODONE/ACETAMINOPHEN 10 MG/325 MG TAB PO PRN ×3 (10:20→21:21)
--- NOTE | 2017-08-03 11:47 | ECHRPT ---
Indication: cad CONCLUSIONS The left ventricular systolic function is severely reduced with an estimated ejection fraction of 25%. Normal left ventricular size. Mild concentric left ventricular hypertrophy. There is akinesis of the mid to distal septum, akinesis of the mid to distal inferior wall, akinesis of the distal anterior wall and apex. Structurally normal mitral valve. Mild mitral valve regurgitation. Structurally normal tricuspid valve. There is mild tricuspid valve regurgitation. The estimated pulmonary arterial pressure is 64 mmHg. BP: 156 / 90 HR: Rhythm: MEASUREMENTS (Male / Female) Normal Values Technical Quality:Good 2D ECHO LV Diastolic Diameter PLAX 4.4 cm 4.2 - 5.9 / 3.9 - 5.3 cm LV Systolic Diameter PLAX 4.1 cm IVS Diastolic Thickness 1.7 cm 0.6 - 1.0 / 0.6 - 0.9 cm LVPW Diastolic Thickness 1.3 cm 0.6 - 1.0 / 0.6 - 0.9 cm LV Relative Wall Thickness 0.7 RV Internal Dim ED PLAX 2.5 cm M-MODE Aortic Root Diameter MM 3.1 cm LA Systolic Diameter MM 3.4 cm LA Ao Ratio MM 1.1 AV Cusp Separation MM 1.7 cm DOPPLER Mitral E Point Velocity 70.6 cm/s Mitral A Point Velocity 81.9 cm/s Mitral E to A Ratio 0.9 LV E' Lateral Velocity 9.3 cm/s Mitral E to LV E' Lateral Ratio 7.6 LV E' Septal Velocity 7.3 cm/s Mitral E to LV E' Septal Ratio 9.7 TR Peak Velocity 369.0 cm/s TR Peak Gradient 54.5 mmHg Right Atrial Pressure 10.0 mmHg Pulmonary Artery Systolic Pressu 64.5 mmHg Right Ventricular Systolic Press 64.5 mmHg FINDINGS LEFT VENTRICLE The left ventricular systolic function is severely reduced with an estimated ejection fraction of 2 5%. Normal left ventricular size. Mild concentric left ventricular hypertrophy. There is akinesis of the mid to distal septum, akinesis of the mid to distal inferior wall, akinesis of the distal anterior wall and apex. RIGHT VENTRICLE Normal right ventricular size and systolic function. LEFT ATRIUM The left atrial size is normal. RIGHT ATRIUM The right atrial size is normal. ATRIAL SEPTUM Normal atrial septal thickness without atrial level shunting by limited color doppler interrogation. AORTA The aortic root and proximal ascending aorta are normal in size on limited imaging. MITRAL VALVE Structurally normal mitral valve. Mild mitral valve regurgitation. AORTIC VALVE Trileaflet aortic valve. No aortic valve regurgitation. TRICUSPID VALVE Structurally normal tricuspid valve. There is mild tricuspid valve regurgitation. The estimated pulmonary arterial pressure is 64 mmHg. PULMONARY VALVE No pulmonary valve regurgitation or stenosis. VESSELS The inferior vena cava is normal in size. PERICARDIUM No pericardial effusion. Otto Riley MD (Electronically Signed) Final Date:03 August 2017 11:46
--- NOTE | 2017-08-03 13:37 | PD.CARD.PN ---
Subjective Subjective Remarks No events overnight Feels well Denies CP/Abd pain Objective Medications Current Medications Medications (Trade) Dose Ordered Sig/Jayro Route Start Time Stop Time Status Last Admin (Tylenol) 325 mg Q4H PRN PO 08/02/17 13:15 (Percocet 5-325 Mg) 1 tab Q4H PRN PO 08/02/17 13:15 (Percocet 10-325 Mg) 1 tab Q4H PRN PO 08/02/17 13:15 08/03/17 10:20 (Morphine Inj) 2 mg Q30M PRN IV PUSH 08/02/17 13:15 (Aspirin Chew) 81 mg DAILY PO 08/03/17 09:00 08/03/17 09:18 (Plavix) 75 mg DAILY PO 08/03/17 09:00 08/03/17 09:18 (Atropine Inj) 0.5 mg UNSCH PRN IV PUSH 08/02/17 13:15 (Zofran Inj) 4 mg Q4H PRN IV PUSH 08/02/17 13:15 (Lopressor) 12.5 mg BID PO 08/02/17 21:00 08/03/17 09:20 (Pill Splitter) 1 ea UNSCH PRN OTHER 08/02/17 15:00 Vital Signs / I&O Vital Signs Date Time Temp Pulse Resp B/P (MAP) Pulse Ox O2 Delivery O2 Flow Rate FiO2 08/03/17 13:11 90 08/03/17 12:02 97 08/03/17 12:02 107 08/03/17 11:00 98.5 95 18 124/76 (92) 100 08/03/17 10:00 88 08/03/17 09:00 90 08/03/17 08:00 88 08/03/17 07:49 98.5 85 18 118/76 (90) 100 08/03/17 07:00 95 08/03/17 06:00 83 08/03/17 05:01 82 08/03/17 04:05 91 08/03/17 03:25 93 08/03/17 03:24 98.6 90 18 115/72 (86) 100 08/03/17 02:18 93 08/03/17 01:01 96 08/03/17 00:05 91 08/02/17 23:14 99.9 98 18 121/74 (90) 100 08/02/17 23:00 100 08/02/17 22:10 100 08/02/17 21:00 101 08/02/17 20:00 109 08/02/17 19:15 114 08/02/17 19:15 98.1 111 18 122/76 (91) 100 08/02/17 18:08 92 08/02/17 17:06 90 08/02/17 15:11 97.8 93 18 110/62 (78) 98 08/02/17 15:11 93 I/O 08/02/17 08/02/17 08/02/17 08/03/17 08/03/17 08/03/17 07:00 15:00 23:00 07:00 15:00 23:00 Intake Total 93 ml 592 ml Output Total 400 ml 925 ml Balance -307 ml -333 ml Intake Oral 120 ml IV Total 93 ml 472 ml Output Urine Total 400 ml 925 ml # Bowel Movements 0 Physical Exam GENERAL: NAD, AAOx3 SKIN: Warm and dry. HEAD: Atraumatic. Normocephalic. EYES: Pupils equal and round. No scleral icterus. No injection or drainage. ENT: No nasal bleeding or discharge. Mucous membranes pink and moist. NECK: Trachea midline. No JVD. CARDIOVASCULAR: Regular rate and rhythm. RESPIRATORY: No accessory muscle use. Clear to auscultation. Breath sounds equal bilaterally. GASTROINTESTINAL: Abdomen soft, non-tender, nondistended. Hepatic and splenic margins not palpable. MUSCULOSKELETAL: Extremities without clubbing, cyanosis, or edema. No obvious deformities. Right femoral no hematoma/bruit, distal pulses intact NEUROLOGICAL: Awake and alert. No obvious cranial nerve deficits. Motor grossly within normal limits. Five out of 5 muscle strength in the arms and legs. Normal speech. PSYCHIATRIC: Appropriate mood and affect; insight and judgment normal. Laboratory Laboratory Tests Test 08/03/17 05:15 White Blood Count 5.2 TH/MM3 Red Blood Count 3.12 MIL/MM3 Hemoglobin 8.9 GM/DL Hematocrit 26.4 % Mean Corpuscular Volume 84.7 FL Mean Corpuscular Hemoglobin 28.4 PG Mean Corpuscular Hemoglobin Concent 33.5 % Red Cell Distribution Width 13.7 % Platelet Count 132 TH/MM3 Mean Platelet Volume 8.6 FL Neutrophils (%) (Auto) 69.3 % Lymphocytes (%) (Auto) 18.7 % Monocytes (%) (Auto) 9.9 % Eosinophils (%) (Auto) 1.6 % Basophils (%) (Auto) 0.5 % Neutrophils # (Auto) 3.6 TH/MM3 Lymphocytes # (Auto) 1.0 TH/MM3 Monocytes # (Auto) 0.5 TH/MM3 Eosinophils # (Auto) 0.1 TH/MM3 Basophils # (Auto) 0.0 TH/MM3 CBC Comment DIFF FINAL Differential Comment Blood Urea Nitrogen 38 MG/DL Creatinine 1.68 MG/DL Random Glucose 101 MG/DL Calcium Level 8.5 MG/DL Sodium Level 137 MEQ/L Potassium Level 4.0 MEQ/L Chloride Level 106 MEQ/L Carbon Dioxide Level 21.2 MEQ/L Anion Gap 10 MEQ/L Estimat Glomerular Filtration Rate 51 ML/MIN Triglycerides Level 70 MG/DL Cholesterol Level 99 MG/DL LDL Cholesterol 48 MG/DL HDL Cholesterol 36.6 MG/DL Cholesterol/HDL Ratio 2.70 RATIO Assessment and Plan Problem List: (1) STEMI (ST elevation myocardial infarction) ICD Codes: I21.3 - ST elevation (STEMI) myocardial infarction of unspecified site (2) Hypertension ICD Codes: I10 - Hypertension Status: Chronic (3) Acute kidney injury ICD Codes: N17.9 - Acute kidney failure, unspecified (4) Abdominal pain ICD Codes: R10.9 - Abdominal pain Status: Acute (5) Anemia ICD Codes: D64.9 - Anemia, unspecified (6) Pancreatic mass ICD Codes: K86.9 - Pancreatic mass Status: Chronic Assessment and Plan 1) Acute anterior STEMI s/p BMS to LAD ASA/Plavix 2) EF 25%, mild MR/TR 3) No further pain 4) Drop in Hgb, will continue to watch 5) Con't BB 6) Statin on hold due to elevated AST/ALT 7) BINTA-I on hold due to ISABELA Pollo Alfredo DO Aug 03, 2017 13:37
--- NOTE | 2017-08-03 17:14 | EKG ---
Date Performed: 08/02/2017 Time Performed: 11:42:52 PTAGE: 61 years EKG: SINUS TACHYCARDIA LOW QRS VOLTAGE IN EXTREMITY LEADS ANTEROSEPTAL MYOCARDIAL INFARCTION MAR KED ST ELEVATION, CONSIDER INFERIOR INJURY ACUTE MA THER IS WIDE SPREAD ST ELEVATION SO PERICAR DITIS IS A POSSIBILITY BUT THIS IS MOST CONSISTENT WITH AN ANTERIOR WALL INFARCT WITH INFERIOR WALL I NVOLVEMENT FROM A WRAP AROUND LEFT ANTERIOR DECENDING VESSEL. SINCE THE PRIOR TRACING THE CHANGES OF ACUTE ST SEGMENT ELEVATION INFARCTION ARE NEW. PREVIOUS TRACING : 10/17/2016 18.18 DOCTOR: Capri Toro Interpretating Date/Time 08/03/2017 17:13:46
--- NOTE | 2017-08-03 17:19 | EKG ---
Date Performed: 08/03/2017 Time Performed: 05:36:52 PTAGE: 61 years EKG: CONSIDER ACUTE ST ELEVATION [place] Sinus rhythm Left axis deviation ANTEROSEPTAL INFARCT - POSSIBLY ACUTE Inferior infarct - age undetermine d Lateral ST elevation, CONSIDER ACUTE INFARCT Low QRS voltages in limb leads Compared to prior azar ng no significant change Clinical correlation is recommended to exclude acute extensive anterior wall myocardial infarction remains fundamentally important. Abnormal ECG PREVIOUS TRACING : 08/02/2017 11.42 DOCTOR: Capri Toro Interpretating Date/Time 08/03/2017 17:18:19
[2017-08-04] VITALS (14 sets, daily range): BP systolic 110–144; BP diastolic 71–90; PULSE 76–98; RESP 16–18; TEMP 97.9–98.6; O2SAT 98–100
[2017-08-04 05:24] LABS: BASOPHIL % 0.4 % (0.0-2.0); EOSINOPHIL # 0.1 TH/MM3 (0-0.4); EOSINOPHIL % 2.3 % (0.0-4.0); HEMATOCRIT 28.2 % (39.0-51.0); HEMO FLAGS DIFF FINAL; LYMPH % 18.7 % (9.0-44.0); LYMPHOCYTE # 1.1 TH/MM3 (1.0-4.8); MEAN CELL VOLUME 85.7 FL (80.0-100.0); MEAN CORPUSCULAR HEMOGLOBIN 28.5 PG (27.0-34.0); MEAN CORPUSCULAR HGB CONC 33.3 % (32.0-36.0); MONO % 8.6 % (0.0-8.0); PLATELET COUNT 152 TH/MM3 (150-450); RED BLOOD COUNT 3.29 MIL/MM3 (4.50-5.90); RED CELL DISTRIBUTION WIDTH 13.6 % (11.6-17.2); WHITE BLOOD COUNT 5.7 TH/MM3 (4.0-11.0)
[2017-08-04 06:03] LABS: ALKALINE PHOSPHATASE 249 U/L (45-117); ALT (GPT) 86 U/L (12-78); ANION GAP 10 MEQ/L (5-15); AST (GOT) 36 U/L (15-37); BICARBONATE 21.1 MEQ/L (21.0-32.0); BLOOD UREA NITROGEN 41 MG/DL (7-18); CHLORIDE 107 MEQ/L (98-107); GLOMERULAR FILTRATION RATE 48 ML/MIN (>89); SODIUM (NA) 138 MEQ/L (136-145); TOTAL BILIRUBIN ADULT 0.3 MG/DL (0.2-1.0)
[2017-08-04] MEDS: ASPIRIN 81 MG CHEW TAB PO SCH (09:39)
[2017-08-04] MEDS: METOPROLOL TARTRATE 25 MG TAB PO SCH (09:39)
[2017-08-04] MEDS: CLOPIDOGREL 75 MG TAB PO SCH (09:39)
--- NOTE | 2017-08-04 11:47 | PD.CARD.PN ---
Subjective Subjective Remarks No events overnight Feels well, ready to go home Denies CP/Abd pain Objective Medications Current Medications Medications (Trade) Dose Ordered Sig/Jayro Route Start Time Stop Time Status Last Admin (Tylenol) 325 mg Q4H PRN PO 08/02/17 13:15 (Percocet 5-325 Mg) 1 tab Q4H PRN PO 08/02/17 13:15 (Percocet 10-325 Mg) 1 tab Q4H PRN PO 08/02/17 13:15 08/03/17 21:21 (Morphine Inj) 2 mg Q30M PRN IV PUSH 08/02/17 13:15 (Aspirin Chew) 81 mg DAILY PO 08/03/17 09:00 08/04/17 09:39 (Plavix) 75 mg DAILY PO 08/03/17 09:00 08/04/17 09:39 (Atropine Inj) 0.5 mg UNSCH PRN IV PUSH 08/02/17 13:15 (Zofran Inj) 4 mg Q4H PRN IV PUSH 08/02/17 13:15 (Lopressor) 12.5 mg BID PO 08/02/17 21:00 08/04/17 09:39 (Pill Splitter) 1 ea UNSCH PRN OTHER 08/02/17 15:00 Vital Signs / I&O Vital Signs Date Time Temp Pulse Resp B/P (MAP) Pulse Ox O2 Delivery O2 Flow Rate FiO2 08/04/17 07:20 97.9 84 18 144/86 (105) 100 08/04/17 07:20 84 08/04/17 06:57 98.6 90 16 133/90 (104) 100 08/04/17 06:00 85 08/04/17 05:00 82 08/04/17 04:00 84 08/04/17 03:00 82 08/04/17 02:00 80 08/04/17 01:00 83 08/04/17 00:00 83 08/03/17 23:40 98.6 96 16 132/82 (99) 97 08/03/17 23:00 83 08/03/17 22:00 84 08/03/17 21:00 95 08/03/17 20:00 98.5 95 16 124/83 (97) 100 08/03/17 20:00 94 08/03/17 19:00 83 08/03/17 18:13 82 08/03/17 17:00 86 08/03/17 16:10 83 08/03/17 15:13 97.1 89 16 115/76 (89) 100 08/03/17 15:00 89 08/03/17 14:33 89 08/03/17 13:11 90 08/03/17 12:02 97 08/03/17 12:02 107 I/O 08/03/17 08/03/17 08/03/17 08/04/17 08/04/17 08/04/17 07:00 15:00 23:00 07:00 15:00 23:00 Intake Total 592 ml 480 ml 240 ml Output Total 925 ml 400 ml 825 ml Balance -333 ml 80 ml -585 ml Intake Oral 120 ml 480 ml 240 ml IV Total 472 ml Output Urine Total 925 ml 400 ml 825 ml # Voids 1 # Bowel Movements 0 0 Physical Exam GENERAL: NAD, AAOx3 SKIN: Warm and dry. HEAD: Atraumatic. Normocephalic. EYES: Pupils equal and round. No scleral icterus. No injection or drainage. ENT: No nasal bleeding or discharge. Mucous membranes pink and moist. NECK: Trachea midline. No JVD. CARDIOVASCULAR: Regular rate and rhythm. RESPIRATORY: No accessory muscle use. Clear to auscultation. Breath sounds equal bilaterally. GASTROINTESTINAL: Abdomen soft, non-tender, nondistended. Hepatic and splenic margins not palpable. MUSCULOSKELETAL: Extremities without clubbing, cyanosis, or edema. No obvious deformities. Right femoral no hematoma/bruit, distal pulses intact NEUROLOGICAL: Awake and alert. No obvious cranial nerve deficits. Motor grossly within normal limits. Five out of 5 muscle strength in the arms and legs. Normal speech. PSYCHIATRIC: Appropriate mood and affect; insight and judgment normal. Laboratory Laboratory Tests Test 08/04/17 05:16 White Blood Count 5.7 TH/MM3 Red Blood Count 3.29 MIL/MM3 Hemoglobin 9.4 GM/DL Hematocrit 28.2 % Mean Corpuscular Volume 85.7 FL Mean Corpuscular Hemoglobin 28.5 PG Mean Corpuscular Hemoglobin Concent 33.3 % Red Cell Distribution Width 13.6 % Platelet Count 152 TH/MM3 Mean Platelet Volume 8.3 FL Neutrophils (%) (Auto) 70.0 % Lymphocytes (%) (Auto) 18.7 % Monocytes (%) (Auto) 8.6 % Eosinophils (%) (Auto) 2.3 % Basophils (%) (Auto) 0.4 % Neutrophils # (Auto) 4.0 TH/MM3 Lymphocytes # (Auto) 1.1 TH/MM3 Monocytes # (Auto) 0.5 TH/MM3 Eosinophils # (Auto) 0.1 TH/MM3 Basophils # (Auto) 0.0 TH/MM3 CBC Comment DIFF FINAL Differential Comment Blood Urea Nitrogen 41 MG/DL Creatinine 1.75 MG/DL Random Glucose 102 MG/DL Total Protein 7.1 GM/DL Albumin 2.6 GM/DL Calcium Level 9.3 MG/DL Alkaline Phosphatase 249 U/L Aspartate Amino Transf (AST/SGOT) 36 U/L Alanine Aminotransferase (ALT/SGPT) 86 U/L Total Bilirubin 0.3 MG/DL Sodium Level 138 MEQ/L Potassium Level 4.0 MEQ/L Chloride Level 107 MEQ/L Carbon Dioxide Level 21.1 MEQ/L Anion Gap 10 MEQ/L Estimat Glomerular Filtration Rate 48 ML/MIN Assessment and Plan Problem List: (1) STEMI (ST elevation myocardial infarction) ICD Codes: I21.3 - ST elevation (STEMI) myocardial infarction of unspecified site (2) Hypertension ICD Codes: I10 - Hypertension Status: Chronic (3) Acute kidney injury ICD Codes: N17.9 - Acute kidney failure, unspecified (4) Abdominal pain ICD Codes: R10.9 - Abdominal pain Status: Acute (5) Anemia ICD Codes: D64.9 - Anemia, unspecified (6) Pancreatic mass ICD Codes: K86.9 - Pancreatic mass Status: Chronic Assessment and Plan 1) Acute anterior STEMI s/p BMS to LAD ASA/Plavix 2) EF 25%, mild MR/TR 3) No further pain 4) Drop in Hgb, stable, appears dilutional 5) Con't BB 6) Statin can be added as LFTs less than 3x normal 7) BINTA-I/ARB on hold due to ISABELA Unsure if now CKDor cause? 8) Stable from a cardiovascular standpoint for discharge Will see PRN, if concerns over the weekend please call covering physician Pollo Alfredo DO Aug 04, 2017 11:47
[2017-08-04] MEDS ORDERED: ASPI81CH25 PO (14:30)
[2017-08-04] MEDS ORDERED: PLAV75TA29 PO (14:30)
[2017-08-04] MEDS ORDERED: MUPI2OIN TOPICAL (14:30)
[2017-08-04] MEDS ORDERED: METO25TA3 PO (14:30)
--- NOTE | 2017-08-04 14:31 | HHI.DCPOC ---
Discharge Care Plan Diagnosis: (1) Acute kidney injury (2) STEMI (ST elevation myocardial infarction) (3) Hypertension Goals to Promote Your Health * To prevent worsening of your condition and complications * To maintain your health at the optimal level Directions to Meet Your Goals Take your medications as prescribed Follow your dietary instruction Follow activity as directed Keep your appointments as scheduled Take your immunizations and boosters as scheduled If your symptoms worsen call your PCP, if no PCP go to Urgent Care Center or Emergency Room Smoking is Dangerous to Your Health. Avoid second hand smoke Call the 24-hour hour crisis hotline for domestic abuse at Long Willis MD Aug 04, 2017 14:31
--- NOTE | 2017-08-04 14:35 | HHI.DS ---
Discharge Summary Admission Date Aug 02, 2017 at 12:11 Discharge Date: Aug 04, 2017 Admitting Diagnosis STEMI, R/O SBO (1) STEMI (ST elevation myocardial infarction) ICD Code: I21.3 - ST elevation (STEMI) myocardial infarction of unspecified site (2) Anemia ICD Code: D64.9 - Anemia, unspecified (3) Acute kidney injury ICD Code: N17.9 - Acute kidney failure, unspecified (4) Abdominal pain ICD Code: R10.9 - Abdominal pain Status: Acute (5) Hypertension ICD Code: I10 - Hypertension Status: Chronic Procedures 08/02/17 cardiac catheterization Brief History - From Admission The patient is a 61-year-old male who presented to the emergency department with complaint of chest pain and abdominal pain. This started a few days ago and he reports nausea and vomiting. Chest pain was intermittent and worsened yesterday. EKG in the emergency department showed ST elevation. Cartilage was consulted emergently and the patient was taken to cardiac catheterization. Bare metal stent was placed. The patient has no chest pain at this time. Abdominal pain is improved as well. He has no specific complaints at this time. CBC/BMP: 08/04/17 0516 08/04/17 0516 Significant Findings Laboratory Tests Test 08/02/17 11:30 08/03/17 05:15 08/04/17 05:16 Red Blood Count 3.79 MIL/MM3 (4.50-5.90) 3.12 MIL/MM3 (4.50-5.90) 3.29 MIL/MM3 (4.50-5.90) Hemoglobin 11.2 GM/DL (13.0-17.0) 8.9 GM/DL (13.0-17.0) 9.4 GM/DL (13.0-17.0) Hematocrit 32.5 % (39.0-51.0) 26.4 % (39.0-51.0) 28.2 % (39.0-51.0) Neutrophils (%) (Auto) 79.3 % (16.0-70.0) Monocytes (%) (Auto) 8.6 % (0.0-8.0) 9.9 % (0.0-8.0) 8.6 % (0.0-8.0) Blood Urea Nitrogen 46 MG/DL (7-18) 38 MG/DL (7-18) 41 MG/DL (7-18) Creatinine 1.95 MG/DL (0.60-1.30) 1.68 MG/DL (0.60-1.30) 1.75 MG/DL (0.60-1.30) Random Glucose 163 MG/DL (74-106) Total Protein 8.4 GM/DL (6.4-8.2) Albumin 3.2 GM/DL (3.4-5.0) 2.6 GM/DL (3.4-5.0) Alkaline Phosphatase 340 U/L (45-117) 249 U/L (45-117) Aspartate Amino Transf (AST/SGOT) 75 U/L (15-37) Alanine Aminotransferase (ALT/SGPT) 166 U/L (12-78) 86 U/L (12-78) Sodium Level 135 MEQ/L (136-145) Estimat Glomerular Filtration Rate 43 ML/MIN (>89) 51 ML/MIN (>89) 48 ML/MIN (>89) Lipase 48 U/L (73-393) Platelet Count 132 TH/MM3 (150-450) Cholesterol Level 99 MG/DL (120-200) HDL Cholesterol 36.6 MG/DL (40.0-60.0) Imaging Last Impressions Chest X-Ray 08/02/17 0000 Signed Impressions: Service Date/Time: Wednesday, August 02, 2017 11:50 - CONCLUSION: 1. No acute cardiopulmonary disease. Gómez Sanchez MD PE at Discharge General: No acute distress. Heart: Regular rate and rhythm. No murmur. Lungs: Clear to auscultation bilaterally. No wheezes, rales, or rhonchi. Breathing is nonlabored. Abdomen: Soft, nontender, nondistended. Extremities: No lower extremity edema. Psych: Alert and oriented. : 3 cm diameter area on left lateral aspect of the scrotum with cystlike appearance. No open wound. No overlying erythema. No drainage. Nontender. Pt update on day of discharge The patient wants to go home today. He has been cleared for discharge by cardiology. No chest pain, dyspnea. He has been ambulating in the room with a walker. No lightheadedness/dizziness. Steady on his feet with walker per nursing. Patient has a "lump" on the left lateral aspect of his scrotum. This is not painful, but was a couple days ago. He states that he noticed it 5 days ago. Yesterday it apparently drained some pus. There is no tenderness or erythema. No apparent open wound and no pus expressed on exam. He was advised to seek medical attention immediately if the area became painful, red, or had drainage of pus. Hospital Course The patient was admitted to the cardiology service for management of STEMI. Urgent cardiac catheterization was done. Bare-metal stent was placed in the proximal LAD. Chest pain improved. The patient was noted to have anemia and acute kidney injury. LFTs were elevated, but improved during the hospitalization. Creatinine did show some improvement as well. The patient was asymptomatic on the day of discharge and requested discharge home. He described an area of swelling in the groin/scrotum. Apparently there was some pustular drainage from this area, which resolved. On the day of discharge, there was no tenderness or erythema surrounding it appeared on exam to be a cyst. There was no open wound. He was advised to follow-up for further evaluation if this area worsened. He was cleared for discharge by cardiology. Pt Condition on Discharge: Stable Discharge Disposition: Discharge Home Discharge Time: > 30 minutes Discharge Instructions DIET: Follow Instructions for: Heart Healthy Diet, Diabetic Diet Activities you can perform: Regular-No Restrictions Follow up Referrals: Cardiology - 1 Week with Pollo Alfredo DO PCP Follow-up - 3-5 Days New Medications: Mupirocin Topical (Mupirocin Topical) 2 % Oint 1 APPLIC TOPICAL BID for Mgmt Bacterial Infection, #1 TUBE 0 Refills Aspirin (Aspirin Low Strength) 81 Mg Chew 81 MG PO DAILY for Blood Clot Prevention, #30 EA 0 Refills Clopidogrel (Plavix) 75 Mg Tab 75 MG PO DAILY for Blood Clot Prevention, #30 TAB 0 Refills Metoprolol Tartrate (Metoprolol Tartrate) 25 Mg Tab 12.5 MG PO BID for Heart, #60 TAB 0 Refills Continued Medications: Atorvastatin (Atorvastatin) 20 Mg Tab 20 MG PO HS for Cholesterol Management, #30 TAB 0 Refills Pancrelipase (Creon) 24,000-76,000-120,000 Units Cap 1 CAP PO TIDPC for Digestive Aid, #90 CAP 0 Refills Discontinued Medications: Aspirin (Aspirin) 325 Mg Tab 325 MG PO DAILY, #30 TAB 0 Refills Hydrochlorothiazide (Hydrochlorothiazide) 25 Mg Tab 25 MG PO DAILY, #30 TAB 0 Refills Lisinopril (Lisinopril) 40 Mg Tab 40 MG PO DAILY for Blood Pressure Management, #30 TAB 0 Refills Long Willis MD Aug 04, 2017 14:35
[2017-08-04] MEDS ORDERED: ATORVASTATIN 20 MG TAB PO SCH (21:00)
== END 2017-08-04 16:04 | disposition home or self-care (01) | DRG 249 ==
LOC: NEPE 11:18 → NEDA 12:11 → HCPC 13:32
PROVIDERS: ADMIT Family Medicine; ATTEND Family Medicine
PROC: 02703DZ Dilation of Coronary Artery, One Artery with Intraluminal Device, Percutaneous Approach (ICD-10-PCS; principal; 2017-08-02)
PROC: 4A023N7 Measurement of Cardiac Sampling and Pressure, Left Heart, Percutaneous Approach (ICD-10-PCS; 2017-08-02)
PROC: B2111ZZ Fluoroscopy of Multiple Coronary Arteries using Low Osmolar Contrast (ICD-10-PCS; 2017-08-02)
DX: I21.09 ST elevation (STEMI) myocardial infarction involving other coronary artery of anterior wall (principal); N17.9 Acute kidney failure, unspecified; K86.1 Other chronic pancreatitis; F32.9 Major depressive disorder, single episode, unspecified; I10 Essential (primary) hypertension; L40.9 Psoriasis, unspecified; F17.210 Nicotine dependence, cigarettes, uncomplicated; F12.10 Cannabis abuse, uncomplicated; D64.9 Anemia, unspecified; E78.5 Hyperlipidemia, unspecified; I25.10 Atherosclerotic heart disease of native coronary artery without angina pectoris; Z79.82 Long term (current) use of aspirin; Z86.73 Personal history of transient ischemic attack (TIA), and cerebral infarction without residual deficits
CPT/HCPCS: 71010; 80048; 80053; 80061; 83690; 85002; 85025; 92941; 93005; 93306; 93458; 96374; 96375; 99152; 99153; C1725; C1769; C1876; C1887; C1893; J1644; J2250; J2270; J2405; J3010; J7030; J7040; Q9967

== ENCOUNTER 2018-06-02 10:53 | Inpatient (IN) ==
[2018-06-02] MEDS ORDERED: Morphine Inj 4 MG/ML Vial IV.PUSH ONE (11:14)
[2018-06-02 11:58] LABS: Baso % (Auto) 0.1 % (0.0-2.0); Eos % (Auto) 0.1 % (0.0-4.0); Hematocrit 30.7 % (39.0-51.0); Hemoglobin 10.3 gm/dL (13.0-17.0); Lymph # (Auto) 0.4 th/mm3 (1.0-4.8); Lymph % (Auto) 3.6 % (9.0-44.0); Mean Corpuscular HGB Conc 33.7 % (32.0-36.0); Mean Corpuscular Hemoglobin 28.8 pg (27.0-34.0); Mean Corpuscular Volume 85.5 fL (80.0-100.0); Mean Platelet Volume 9.1 fL (7.0-11.0); Mono # (Auto) 0.7 th/mm3 (0.0-0.9); Mono % (Auto) 6.1 % (0.0-8.0); Neut # (Auto) 9.8 th/mm3 (1.8-7.7); Neut % (Auto) 90.1 % (16.0-70.0); Platelet Count 170 th/mm3 (150-450); Red Blood Count 3.59 mil/mm3 (4.50-5.90); Red Cell Distribution Width 15.5 % (11.6-17.2); White Blood Count 10.8 th/mm3 (4.0-11.0)
[2018-06-02 12:16] LABS: Activated Partial Thrombo Time 33.6 sec (24.3-30.1); INR 1.5 Ratio; Prothrombin Time 15.4 sec (9.8-11.6)
[2018-06-02 12:18] LABS: Albumin 2.8 g/dL (3.4-5.0); Anion Gap 12 meq/L (5-15); Aspartate Aminotransferase 69 U/L (15-37); Blood Urea Nitrogen 44 mg/dL (7-18); Calcium 9.2 mg/dL (8.5-10.1); Carbon Dioxide 21.1 meq/L (21.0-32.0); Chloride 99 meq/L (98-107); Glomerular Filtration Rate 33 mL/min (>89); Glucose,Random 129 mg/dL (74-106); Lipase 22 U/L (73-393); Potassium 3.7 meq/L (3.5-5.1); Sodium 132 meq/L (136-145)
[2018-06-02 12:20] LABS: Alanine Aminotransferase 80 U/L (12-78)
[2018-06-02 12:22] LABS: Alkaline Phosphatase 841 U/L (45-117)
[2018-06-02 12:28] LABS: Creatine Kinase 68 U/L (39-308)
--- NOTE | 2018-06-02 13:27 | CT ---
EXAM DATE: 06/02/2018 1:13 PM EDT AGE/SEX: 62 years / Male INDICATIONS: Lower abdomen pain for five days. CLINICAL DATA: This is the patient's initial encounter. Patient reports that signs and symptoms have been present for 4 - 6 days and indicates a pain score of 8/10. MEDICAL/SURGICAL HISTORY: Hypertension. Myocardial infarction. . abdominal surgery RADIATION DOSE: 5.26 CTDI (mGy) COMPARISON: [facility] [place], CT ABDOMEN & PELVIS W CONTRAST, 10/17/2016. . TECHNIQUE: Multiple contiguous axial images were obtained through the abdomen. Images were obtained using multiple row detector helical technique. Using automated exposure control and adjustment of the mA and/or kV according to patient size, radiation dose was kept as low as reasonably achievable to o btain optimal diagnostic quality images. DICOM format image data is available electronically for rev iew and comparison. FINDINGS: Lower chest: No acute abnormality is identified. There is trace pericardial fluid. Coronary artery ca lcification is present. Hepatobiliary: Liver density is normal on this noncontrast examination and no focal lesion is seen. N o calcified gallstones are present. There is severe intrahepatic bile duct dilatation proximal to the metallic stent. Metallic stent extends from the proximal common hepatic duct distally into the secon d portion of the duodenum. The degree of intrahepatic biliary dilatation is increased from the prior study. Kidneys: No hydronephrosis, stone, or mass. There are 2 low-density lesions in the left kidney measur ing 9 mm at the upper pole and 10 mm in the mid aspect. Both have density measurements consistent wit h simple cysts. Adrenal Glands: Within normal limits. Spleen: Spleen is enlarged measuring 14.3 cm in length. This is slightly increased from 13.5 cm on th e prior study. No focal lesion is seen. Pancreas: There is mild atrophy of the pancreas with pancreatic calcifications. The main duct measure s 10 mm in the body. This is decreased from 15 mm on the prior study. No inflammatory changes are pre sent. Vascular: The aorta is nonaneurysmal. There is severe atherosclerotic disease. Bowel/Mesentery: Stomach and proximal small bowel demonstrate no abnormality. There has been prior sm all bowel surgery in the right mid abdomen. The segment of bowel which contains bowel staple lines is dilated similar to the prior examination. No colon abnormality is seen. There is no free air or free fluid. There is soft tissue density in the gastrohepatic ligament measuring approximately 2.2 cm. Abdominal Wall: No hernia is visualized. Retroperitoneum: No lymphadenopathy. Bladder: No wall thickening or mass. Reproductive: Within normal limits. Inguinal: No lymphadenopathy or hernia. Musculoskeletal: No acute osseous abnormality is identified. There are degenerative changes throughou t the lumbar spine. No acute osseous abnormality is seen. CONCLUSION: 1. No specific abnormality is identified to explain the lower abdominal pain. 2. Severe intrahepatic bile duct dilatation, increased from the prior study. This dilatation is prox imal to the metallic bile duct stent that is present. This raises suspicion for occlusion of the sten t. Suggest correlating with the appropriate laboratory values to determine if there are findings to i ndicate bile duct obstruction. 3. Pancreas demonstrates features characteristic of chronic pancreatitis. Main pancreatic duct is di lated measuring 10 mm compared to 15 mm previously. As described above, a metallic common duct stent is present. It is not clear if this was placed for benign or malignant disease. 4. Mild splenomegaly. 5. Soft tissue density in the gastrohepatic ligament region is nonspecific and could represent vesse ls versus lymphadenopathy. Based on the appearance on the a prior study I suspect it is most likely a blood vessels since there appeared to be multiple collateral blood vessels present. Electronically signed by: Saleem Alvarez MD 06/02/2018 1:26 PM EDT
[2018-06-02] MEDS ORDERED: Sodium Chlor 0.9% Inj 500 ML IV.SIG SCH ×2 (14:00→15:00)
--- NOTE | 2018-06-02 14:29 | ED ---
HPI General Chief complaint: Abdominal Pain Stated complaint: vomitting/abd/back pain Time Seen by Provider: 06/02/18 11:06 Source: patient Mode of arrival: ambulatory Limitations: no limitations History of Present Illness HPI narrative: Patient is a 62 year old male who comes in complaining of abdominal pain with nausea and vomiting for several days. He says the pain is across the middle of his abdomen. He says he has not had a bowel movement in several days because he has not been able to keep anything down. He also has not taken any of his medications because he cannot keep them down. He denies fever or chills. He denies chest pain or SOB. Severity is moderate. Related Data Home Medications Medication Instructions Recorded Confirmed amlodipine [Norvasc] 5 mg PO DAILY 06/02/18 06/02/18 atorvastatin 20 mg PO DAILY 06/02/18 06/02/18 duloxetine 30 mg PO DAILY 06/02/18 06/02/18 folic acid 1 mg PO DAILY 06/02/18 06/02/18 lisinopril-hydrochlorothiazide 1 tab PO DAILY 06/02/18 06/02/18 Allergies Allergy/AdvReac Type Severity Reaction Status Date / Time No Known Allergies Allergy Verified 06/02/18 11:43 Review of Systems ROS: all other systems reviewed are negative Constitutional Denies chills and Denies fever(s) ENT Denies dizziness Cardiovascular Denies chest pain Respiratory Denies dyspnea Gastrointestinal Reports abdominal pain, Reports nausea and Reports vomiting Genitourinary Denies dysuria Musculoskeletal Denies myalgias and Denies arthralgias Integumentary/Breasts Denies lesions and Denies rash Neurologic Denies headache(s) [facility] Medical History Medical History Heart attack (Acute) Hypercholesteremia (Acute) Hypertension (Acute) Surgical History Surgical History H/O abdominal surgery (Acute) Social History Social History Substance History: No History of Abuse Second Hand Smoke Exposure: Yes Smoking Status: Current every day smoker Tobacco Type: Cigarettes How Often Do You Have a Drink Containing Alcohol: Never Recent Travel in [facility] within the Last 8 Weeks: No Recent Out of Country Travel within the Last 8 Weeks: No Immunization History Tetanus Immunization: <5 Years Hx Influenza Vaccine This Season: Yes Exam Narrative Exam Narrative: GENERAL: Awake and alert, in no acute distress. SKIN: Focused skin assessment warm/dry. HEAD: Atraumatic. Normocephalic. EYES: Pupils equal and round. No scleral icterus. EOMI. ENT: Mucous membranes pink and moist. NECK: Trachea midline. No JVD. CARDIOVASCULAR: Regular rate and rhythm. No murmur appreciated. RESPIRATORY: No accessory muscle use. Clear to auscultation. Breath sounds equal bilaterally. GASTROINTESTINAL: Abdomen soft, non-tender, nondistended. MUSCULOSKELETAL: No obvious deformities. No clubbing. No cyanosis. No edema. NEUROLOGICAL: Awake and alert. No obvious cranial nerve deficits. Motor grossly within normal limits. Normal speech. PSYCHIATRIC: Appropriate mood and affect; insight and judgment normal. Course Initial Documented Vital Signs Temperature 99 F 06/02/18 10:55 Pulse Rate 125 H 06/02/18 10:55 Respiratory Rate 19 06/02/18 10:55 Blood Pressure 161/83 H 06/02/18 10:55 Pulse Oximetry 100 06/02/18 10:55 Last Documented Vital Signs Temperature 97.8 F 06/02/18 15:31 Pulse Rate 92 H 06/02/18 15:31 Respiratory Rate 17 06/02/18 15:31 Blood Pressure 103/71 06/02/18 15:31 Pulse Oximetry 99 06/02/18 15:31 Medical Decision Making MDM Narrative Medical decision making narrative: Patient is a 62-year-old male who comes in complaining of abdominal pain with nausea and vomiting. Exam shows abdomen is soft, nontender to palpation. IV established, labs sent. Labs show a creatinine of 2.4, markedly increased from his previous. Lactic acid is 2.8. CT abdomen pelvis performed shows no acute findings to explain his pain. Patient had an ECG performed does show some ST elevations, however these are similar to his previous EKG. I did speak with cardiology regarding this, and they suggested nothing to do if troponin is negative. Patient given pain medicine, IV, Zofran. He will be admitted for further management. Medical Screen Exam Complete: Yes Emergency Medical Condition: Yes Differential Diagnosis Differential Diagnosis: Obstruction versus ACS versus gastroenteritis versus dehydration versus electrolyte abnormality Medical Records Medical records reviewed: Yes I reviewed the patient's medical records. Lab Data Lab results reviewed: Yes I reviewed the patient's lab results. Result diagrams: 06/02/18 11:25 06/02/18 11:25 Lab Results 06/02/18 06/02/18 06/02/18 Range/Units 11:25 11:25 11:25 WBC (4.0-11.0) th/mm3 RBC (4.50-5.90) mil/mm3 Hgb (13.0-17.0) gm/dL Hct (39.0-51.0) % MCV (80.0-100.0) fL MCH (27.0-34.0) pg MCHC (32.0-36.0) % RDW (11.6-17.2) % Plt Count (150-450) th/mm3 MPV (7.0-11.0) fL Neut % (Auto) (16.0-70.0) % Lymph % (Auto) (9.0-44.0) % [place] % (Auto) (0.0-8.0) % Eos % (Auto) (0.0-4.0) % Baso % (Auto) (0.0-2.0) % Neut # (Auto) (1.8-7.7) th/mm3 Lymph # (Auto) (1.0-4.8) th/mm3 [place] # (Auto) (0.0-0.9) th/mm3 Eos # (Auto) (0.0-0.4) th/mm3 Baso # (Auto) (0.0-0.2) th/mm3 WBC Differential Differential Comment PT 15.4 H (9.8-11.6) sec INR 1.5 Ratio APTT 33.6 H (24.3-30.1) sec Sodium (136-145) meq/L Potassium (3.5-5.1) meq/L Chloride (98-107) meq/L Carbon Dioxide (21.0-32.0) meq/L Anion Gap (5-15) meq/L BUN (7-18) mg/dL Creatinine (0.60-1.30) mg/dL Estimated GFR (>89) mL/min Random Glucose (74-106) mg/dL Lactic Acid 2.8 H (0.4-2.0) mmol/L Calcium (8.5-10.1) mg/dL Total Bilirubin (0.2-1.0) mg/dL AST (15-37) U/L ALT (12-78) U/L Alkaline Phosphatase (45-117) U/L Total Creatine Kinase 68 (39-308) U/L Troponin I Less than 0.02 L (0.02-0.05) ng/mL Total Protein (6.4-8.2) g/dL Albumin (3.4-5.0) g/dL Lipase (73-393) U/L Urine Color (Yellw/Straw) Urine Clarity (Clear) Urine pH (5.0-8.5) Ur Specific [place] (1.002-1.035) Urine Protein (Neg-Trace) mg/dL Urine Glucose (UA) (Negative) mg/dL Urine Ketones (Negative) mg/dL Urine Occult Blood (Negative) Urine Nitrate (Negative) Urine Bilirubin (Negative) Urine Ictotest (Negative) Urine Urobilinogen (Less than 2) mg/dL Ur Leukocyte Esterase (Negative) Urine RBC (0-3) /hpf Urine WBC (0-5) /hpf Ur Squamous Epith Cells (0-5) /hpf Amorphous Sediment (None) /hpf Urine Bacteria (None) /hpf Micro UA Comment Ur Microscopic Review Urine Culture Comments Urine Opiates Screen (Neg) Ur Barbiturates Screen (Neg) Ur Amphetamines Screen (Neg) U Benzodiazepines Scrn (Neg) Urine Cocaine Screen (Neg) U Cannabinoids Screen (Neg) 06/02/18 06/02/18 06/02/18 Range/Units 11:25 11:25 14:10 WBC 10.8 (4.0-11.0) th/mm3 RBC 3.59 L (4.50-5.90) mil/mm3 Hgb 10.3 L (13.0-17.0) gm/dL Hct 30.7 L (39.0-51.0) % MCV 85.5 (80.0-100.0) fL MCH 28.8 (27.0-34.0) pg MCHC 33.7 (32.0-36.0) % RDW 15.5 (11.6-17.2) % Plt Count 170 (150-450) th/mm3 MPV 9.1 (7.0-11.0) fL Neut % (Auto) 90.1 H (16.0-70.0) % Lymph % (Auto) 3.6 L (9.0-44.0) % [place] % (Auto) 6.1 (0.0-8.0) % Eos % (Auto) 0.1 (0.0-4.0) % Baso % (Auto) 0.1 (0.0-2.0) % Neut # (Auto) 9.8 H (1.8-7.7) th/mm3 Lymph # (Auto) 0.4 L (1.0-4.8) th/mm3 [place] # (Auto) 0.7 (0.0-0.9) th/mm3 Eos # (Auto) 0.0 (0.0-0.4) th/mm3 Baso # (Auto) 0.0 (0.0-0.2) th/mm3 WBC Differential . Differential Comment Auto diff final PT (9.8-11.6) sec INR Ratio APTT (24.3-30.1) sec Sodium 132 L (136-145) meq/L Potassium 3.7 (3.5-5.1) meq/L Chloride 99 (98-107) meq/L Carbon Dioxide 21.1 (21.0-32.0) meq/L Anion Gap 12 (5-15) meq/L BUN 44 H (7-18) mg/dL Creatinine 2.45 H (0.60-1.30) mg/dL Estimated GFR 33 L (>89) mL/min Random Glucose 129 H (74-106) mg/dL Lactic Acid (0.4-2.0) mmol/L Calcium 9.2 (8.5-10.1) mg/dL Total Bilirubin 18.9 H (0.2-1.0) mg/dL AST 69 H (15-37) U/L ALT 80 H (12-78) U/L Alkaline Phosphatase 841 H (45-117) U/L Total Creatine Kinase (39-308) U/L Troponin I (0.02-0.05) ng/mL Total Protein 8.0 (6.4-8.2) g/dL Albumin 2.8 L (3.4-5.0) g/dL Lipase 22 L (73-393) U/L Urine Color (Yellw/Straw) Urine Clarity (Clear) Urine pH (5.0-8.5) Ur Specific [place] (1.002-1.035) Urine Protein (Neg-Trace) mg/dL Urine Glucose (UA) (Negative) mg/dL Urine Ketones (Negative) mg/dL Urine Occult Blood (Negative) Urine Nitrate (Negative) Urine Bilirubin (Negative) Urine Ictotest (Negative) Urine Urobilinogen (Less than 2) mg/dL Ur Leukocyte Esterase (Negative) Urine RBC (0-3) /hpf Urine WBC (0-5) /hpf Ur Squamous Epith Cells (0-5) /hpf Amorphous Sediment (None) /hpf Urine Bacteria (None) /hpf Micro UA Comment Ur Microscopic Review Urine Culture Comments Urine Opiates Screen Pos H (Neg) Ur Barbiturates Screen Neg (Neg) Ur Amphetamines Screen Neg (Neg) U Benzodiazepines Scrn Neg (Neg) Urine Cocaine Screen Neg (Neg) U Cannabinoids Screen Pos H (Neg) 06/02/18 Range/Units 14:10 WBC (4.0-11.0) th/mm3 RBC (4.50-5.90) mil/mm3 Hgb (13.0-17.0) gm/dL Hct (39.0-51.0) % MCV (80.0-100.0) fL MCH (27.0-34.0) pg MCHC (32.0-36.0) % RDW (11.6-17.2) % Plt Count (150-450) th/mm3 MPV (7.0-11.0) fL Neut % (Auto) (16.0-70.0) % Lymph % (Auto) (9.0-44.0) % [place] % (Auto) (0.0-8.0) % Eos % (Auto) (0.0-4.0) % Baso % (Auto) (0.0-2.0) % Neut # (Auto) (1.8-7.7) th/mm3 Lymph # (Auto) (1.0-4.8) th/mm3 [place] # (Auto) (0.0-0.9) th/mm3 Eos # (Auto) (0.0-0.4) th/mm3 Baso # (Auto) (0.0-0.2) th/mm3 WBC Differential Differential Comment PT (9.8-11.6) sec INR Ratio APTT (24.3-30.1) sec Sodium (136-145) meq/L Potassium (3.5-5.1) meq/L Chloride (98-107) meq/L Carbon Dioxide (21.0-32.0) meq/L Anion Gap (5-15) meq/L BUN (7-18) mg/dL Creatinine (0.60-1.30) mg/dL Estimated GFR (>89) mL/min Random Glucose (74-106) mg/dL Lactic Acid (0.4-2.0) mmol/L Calcium (8.5-10.1) mg/dL Total Bilirubin (0.2-1.0) mg/dL AST (15-37) U/L ALT (12-78) U/L Alkaline Phosphatase (45-117) U/L Total Creatine Kinase (39-308) U/L Troponin I (0.02-0.05) ng/mL Total Protein (6.4-8.2) g/dL Albumin (3.4-5.0) g/dL Lipase (73-393) U/L Urine Color Yellow (Yellw/Straw) Urine Clarity Hazy H (Clear) Urine pH 5.0 (5.0-8.5) Ur Specific [place] 1.013 (1.002-1.035) Urine Protein 300 or greater H (Neg-Trace) mg/dL Urine Glucose (UA) 100 H (Negative) mg/dL Urine Ketones Negative (Negative) mg/dL Urine Occult Blood Moderate (Negative) Urine Nitrate Negative (Negative) Urine Bilirubin Large H (Negative) Urine Ictotest Positive H (Negative) Urine Urobilinogen 1.0 (Less than 2) mg/dL Ur Leukocyte Esterase Trace (Negative) Urine RBC 2 (0-3) /hpf Urine WBC 9 H (0-5) /hpf Ur Squamous Epith Cells 7 (0-5) /hpf Amorphous Sediment Moderate H (None) /hpf Urine Bacteria Few H (None) /hpf Micro UA Comment Culture indicated Ur Microscopic Review Not Reportable Urine Culture Comments Culture indicated Urine Opiates Screen (Neg) Ur Barbiturates Screen (Neg) Ur Amphetamines Screen (Neg) U Benzodiazepines Scrn (Neg) Urine Cocaine Screen (Neg) U Cannabinoids Screen (Neg) Imaging Data Radiologist's impression: Abdomen/Pelvis CT 06/02/18 12:37 CONCLUSION: 1. No specific abnormality is identified to explain the lower abdominal pain. 2. Severe intrahepatic bile duct dilatation, increased from the prior study. This dilatation is proximal to the metallic bile duct stent that is present. This raises suspicion for occlusion of the stent. Suggest correlating with the appropriate laboratory values to determine if there are findings to indicate bile duct obstruction. 3. Pancreas demonstrates features characteristic of chronic pancreatitis. Main pancreatic duct is dilated measuring 10 mm compared to 15 mm previously. As described above, a metallic common duct stent is present. It is not clear if this was placed for benign or malignant disease. 4. Mild splenomegaly. 5. Soft tissue density in the gastrohepatic ligament region is nonspecific and could represent vessels versus lymphadenopathy. Based on the appearance on the a prior study I suspect it is most likely a blood vessels since there appeared to be multiple collateral blood vessels present. ECG Data Attestation: I personally reviewed and interpreted this ECG as follows: Interpretation: ECG shows sinus rhythm at a rate of 112, there is ST elevation in V2 through V4, however this is similar to previous EKGs. Discharge Plan Discharge Disposition Patient Disposition: 30 Still Patient Discharge Condition Condition: Stable Discharge Details Diagnosis: Acute dehydration, ISABELA (acute kidney injury), Nausea & vomiting Physicians Team ED Provider: Micaela Ramey Primary Care Provider: Germán Wen Attending Provider: Florencia Hunter Other Providers: Jamal Monzon Discharge Interventions Interventions: Vital Signs Last Done: 06/02/18 13:48 Status ED Status: Admitted Patient
[2018-06-02 14:47] LABS: Bilirubin,Urine Large (Negative); Color,Urine Yellow (Yellw/Straw); Glucose,Urine (UA) 100 mg/dL (Negative); Leukocyte Esterase,Urine Trace (Negative); Nitrite,Urine Negative (Negative)
[2018-06-02 14:49] LABS: Amorphous Sediment,Urine Moderate /hpf; Bacteria,Urine Few /hpf; Squamous Epithelial Cell,Urine 7 /hpf (0-5)
[2018-06-02 14:50] LABS: Clarity,Urine Hazy (Clear); Ictotest,Urine Positive (Negative)
[2018-06-02 14:51] LABS: Specific Gravity,Urine 1.013 (1.002-1.035)
[2018-06-02 15:00] LABS: Amphetamine Screen,Urine Neg (Neg); Barbiturate Screen,Urine Neg (Neg); Cannabinoid Screen,Urine Pos (Neg); Cocaine Screen,Urine Neg (Neg)
[2018-06-02 15:05] LABS: Opiate Screen,Urine Pos (Neg)
--- NOTE | 2018-06-02 15:08 | P.HPIM ---
History of Present Illness Primary Care Physician: Germán Wen History of Present Illness: 62 year old male with history of chronic pancreatitis, CAD, HTN , HLD, and history of CVA presented to the ED for evaluation of abdominal pain, nausea, and vomiting x 5 days. Patient endorses constant generalized abdominal pain during this time and states he was unable to keep anything down. He states within 10-15 minutes of eating anything he would vomit. He denies hematemesis but endorses biliary emesis. He denies sick contacts or recent travel. He states he had [place] prior to symptom onset. He also endorses chills. He states he has had decreased urination during this time. Denies gross hematuria, dysuria, or flank pain. He endorses intermittent chest pain since his heart attack back in July 2017. Last time he experienced chest pain was last night. He states the pain is on the left side and radiates to the right side. He denies radiation to his jaw or shoulder. He describes the pain as sharp. Patient denies any alcohol use for the past three years. He smokes about 3-4 cigarettes daily. He endorses smoking marijuana daily. Last time he smoked marijuana was 3-4 days ago. Patient denies any significant medical problems running in the family. The patient was hospitalized July 2017 for anterior STEMI with placement of BMS in the proximal LAD. At that time he presented with chest pain, nausea, vomiting, and abdominal pain. Per Dr. Ramey, she spoke to cardiology on the phone and since patient's troponin was negative and EKG was unchanged from prior then to not pursue further cardiac work-up at this time. At the time of my evaluation, patient reports improved symptoms after being given pain medicine, Zofran, and IV fluids. - Diagnosis (1) Abdominal pain (2) Transaminitis (3) Hyperbilirubinemia (4) ISABELA (acute kidney injury) (5) Nausea & vomiting (6) Anemia Inpatient Certification: I certify that the inpatient services were ordered in accordance with Medicare regulations governing the order. This includes certification that hospital inpatient services are reasonable and necessary and in the case of services not specified as inpatient-only under 42 CFR 419.22(n), that they are appropriately provided as inpatient services in accordance to with the 2-midnight benchmark under 43 CFR 412.3(e) Estimated Total Length of Stay (Days): 2 Plans for Post Hospital Care: Not yet determined Review of Systems All other systems reviewed negative except as stated in HPI PMFSH - History History Provided By: Patient - Medical History Medical History: Medical History (Last Updated 06/02/18 @ 16:59 by Florencia Hunter MD) Coronary artery disease H/O: CVA (cerebrovascular accident) Heart attack Hypercholesteremia Hypertension - Surgical History Surgical History: Surgical History (Last Updated 06/02/18 @ 17:02 by Florencia Hunter MD) H/O exploratory laparotomy History of biliary stent insertion History of partial pancreatectomy - Tobacco History Second Hand Smoke Exposure: Yes Tobacco Use In Past 30 Days: Yes Smoking Status: Current every day smoker Tobacco Type: Cigarettes - Alcohol History How Often Do You Have a Drink Containing Alcohol: Never - Substance Use History Substance History: No History of Abuse - Travel History Recent Travel in the [facility] Within the Last 8 Weeks: No Recent Travel Out of the Country Within the Last 8 Weeks: No - Immunization History Tetanus Immunization: <5 Years Hx Influenza Vaccine This Season: Yes Medications and Allergies Active Medications: Active Medications Sodium Chloride (Ns Inj) 500 mls @ 0 mls/hr IV.SIG BOLUS TEODORA Last Admin: 06/02/18 13:47 Dose: 499 mls/hr Sodium Chloride (Ns Inj) 500 mls @ 0 mls/hr IV.SIG BOLUS TEODORA Sodium Chloride (Ns Flush) 2 ml IV.FLUSH PRN PRN PRN Reason: FLUSH AFTER USING IV ACCESS Last Admin: 06/02/18 11:26 Dose: 2 ml Allergies Allergy/AdvReac Type Severity Reaction Status Date / Time No Known Allergies Allergy Verified 06/02/18 11:43 Home Medications Medication Instructions Recorded Confirmed Type amlodipine [Norvasc] 5 mg PO DAILY 06/02/18 06/02/18 History atorvastatin 20 mg PO DAILY 06/02/18 06/02/18 History duloxetine 30 mg PO DAILY 06/02/18 06/02/18 History folic acid 1 mg PO DAILY 06/02/18 06/02/18 History lisinopril-hydrochlorothiazide 1 tab PO DAILY 06/02/18 06/02/18 History Exam Vital signs: Vital Signs 06/02/18 10:55 06/02/18 11:12 06/02/18 11:15 Temperature 99 F Pulse Rate 125 H 95 H Respiratory Rate 19 18 Blood Pressure 161/83 H 163/90 H Pulse Oximetry 100 100 99 06/02/18 11:27 06/02/18 12:13 06/02/18 13:48 Temperature 97.8 F 97.8 F Pulse Rate 116 H 107 H Respiratory Rate 16 16 19 Blood Pressure 143/75 H 131/75 Pulse Oximetry 99 99 Intake & Output 06/01/18 06/02/18 06/02/18 18:59 06:59 18:59 Weight 65.771 kg Narrative: GENERAL: WN, WD, thin AA male resting in bed in NAD. SKIN: Warm and dry. HEENT: AT/NC. Pupils equal and round. + scleral icterus. MMM. NECK: Supple no tender LAD or JVD. HEART: RRR no m/r/g. LUNGS: CTAB without wheezes or crackles. ABDOMEN: Prior ex-lap scar. +BS, soft, diffuse TTP especially over RUQ. Nondistended. EXTREMITIES: No LE edema. Severe xerosis of lower extremities. Diminished pedal pulses. NEURO: Awake and alert. PSYCH: Appropriate mood and affect. Results - Labs CBC & Chem 7: 06/02/18 11:25 06/02/18 11:25 Labs: Short CBC 06/02/18 Range/Units 11:25 WBC 10.8 (4.0-11.0) th/mm3 Hgb 10.3 L (13.0-17.0) gm/dL Hct 30.7 L (39.0-51.0) % Plt Count 170 (150-450) th/mm3 BMP 06/02/18 11:25 Sodium 132 L Potassium 3.7 Chloride 99 Carbon Dioxide 21.1 BUN 44 H Creatinine 2.45 H Calcium 9.2 Cardiac Enzymes 06/02/18 Range/Units 11:25 Total Creatine Kinase 68 (39-308) U/L Troponin I Less than 0.02 L (0.02-0.05) ng/mL Liver Function 06/02/18 Range/Units 11:25 Total Bilirubin 18.9 H (0.2-1.0) mg/dL AST 69 H (15-37) U/L ALT 80 H (12-78) U/L Alkaline Phosphatase 841 H (45-117) U/L Albumin 2.8 L (3.4-5.0) g/dL Urine 06/02/18 Range/Units 14:10 Urine Color Yellow (Yellw/Straw) Urine Clarity Hazy H (Clear) Urine pH 5.0 (5.0-8.5) Ur Specific [place] 1.013 (1.002-1.035) Urine Protein 300 or greater H (Neg-Trace) mg/dL Urine Glucose (UA) 100 H (Negative) mg/dL - Imaging Impressions Abdomen/Pelvis CT 06/02/18 12:37 CONCLUSION: 1. No specific abnormality is identified to explain the lower abdominal pain. 2. Severe intrahepatic bile duct dilatation, increased from the prior study. This dilatation is proximal to the metallic bile duct stent that is present. This raises suspicion for occlusion of the stent. Suggest correlating with the appropriate laboratory values to determine if there are findings to indicate bile duct obstruction. 3. Pancreas demonstrates features characteristic of chronic pancreatitis. Main pancreatic duct is dilated measuring 10 mm compared to 15 mm previously. As described above, a metallic common duct stent is present. It is not clear if this was placed for benign or malignant disease. 4. Mild splenomegaly. 5. Soft tissue density in the gastrohepatic ligament region is nonspecific and could represent vessels versus lymphadenopathy. Based on the appearance on the a prior study I suspect it is most likely a blood vessels since there appeared to be multiple collateral blood vessels present. Caprini VTE Risk Assessment Caprini VTE Risk Assessment: Moderate/High Risk (score >= 2) Caprini Risk Assessment Model: Point Value = 1 Point Value = 2 Point Value = 3 Point Value = 5 Age 41-60 Minor surgery BMI > 25 kg/m2 Swollen legs Varicose veins or History of unexplained or recurrent spontaneous Oral contraceptives or hormone replacement Sepsis (< 1 month) Serious lung disease, including pneumonia (< 1 month) Abnormal pulmonary function Acute myocardial infarction Congestive heart failure (< 1 month) History of inflammatory bowel disease Medical patient at bed rest Age 61-74 Arthroscopic surgery Major open surgery (> 45 min) Laparoscopic surgery (> 45 min) Malignancy Confined to bed (> 72 hours) Immobilizing plaster cast Central venous access Age >= 75 History of VTE Family history of VTE Factor V Leiden Prothrombin [id number] Lupus anticoagulant Anticardiolipin antibodies Elevated serum homocysteine Heparin-induced thrombocytopenia Other congenital or acquired thrombophilia Stroke (< 1 month) Elective arthroplasty Hip, pelvis, or leg fracture Acute spinal cord injury (< 1 month) Prophylaxis Regimen: Total Risk Factor Score Risk Level Prophylaxis Regimen 0-1 Low Early ambulation 2 Moderate Order ONE of the following: *Sequential Compression Device (SCD) *Heparin 5000 units SQ BID 3-4 Higher Order ONE of the following medications: *Heparin 5000 units SQ TID *Enoxaparin/Lovenox 40 mg SQ daily (WT < 150 kg, CrCl > 30 mL/min) *Enoxaparin/Lovenox 30 mg SQ daily (WT < 150 kg, CrCl > 10-29 mL/min) *Enoxaparin/Lovenox 30 mg SQ BID (WT < 150 kg, CrCl > 30 mL/min) AND/OR *Sequential Compression Device (SCD) 5 or more Highest Order ONE of the following medications: *Heparin 5000 units SQ TID (Preferred with Epidurals) *Enoxaparin/Lovenox 40 mg SQ daily (WT < 150 kg, CrCl > 30 mL/min) *Enoxaparin/Lovenox 30 mg SQ daily (WT < 150 kg, CrCl > 10-29 mL/min) *Enoxaparin/Lovenox 30 mg SQ BID (WT < 150 kg, CrCl > 30 mL/min) AND *Sequential Compression Device (SCD) Assessment and Plan - Assessment (1) Abdominal pain Code(s): R10.9 - Unspecified abdominal pain Status: Acute (2) Transaminitis Code(s): R74.0 - Nonspecific elevation of levels of transaminase and lactic acid dehydrogenase [LDH] Status: Acute (3) Hyperbilirubinemia Code(s): E80.6 - Other disorders of bilirubin metabolism Status: Acute (4) ISABELA (acute kidney injury) Code(s): N17.9 - Acute kidney failure, unspecified Status: Acute (5) Nausea & vomiting Code(s): R11.2 - Nausea with vomiting, unspecified Status: Acute (6) Anemia Code(s): D64.9 - Anemia, unspecified Status: Chronic - Plan 62 year old AA male with HTN, HLD, chronic pancreatitis, and history of choledocholithiasis with recurrent obstructive jaundice and CBD stent admitted for nausea, vomiting, and abdominal pain x [address] A/P notable for severe intrahepatic bile duct dilation increased from prior study. The dilation is proximal to the stent raising suspicion for occlusion of the stent. CT A/P also showing evidence of chronic pancreatitis. 1. Biliary obstruction - CT with findings as above with labs supportive of obstructive jaundice - CMP with elevated LFTs (AST 69, ALT 80, alk phos 841) and total bilirubin 18.9 - INR elevated at 1.5 - Lactic acid elevated. Will repeat - Lipase negative - WBC normal but diff showing neutrophilia - Consult GI; d/w Dr. Monzon and planning for ERCP - NPO - Pain control - Antiemetics - IV fluids 2. ISABELA - Creatinine 1.14 in September - Now creatinine is 2.45 with BUN 44 - Electrolytes stable - Likely secondary to dehydration from vomiting and possible hepatorenal given biliary obstruction - Bolused in the ED - Continue NS at 100 ml/hr - Monitor renal function - Avoid nephrotoxic agents 3. HTN - Continue home Norvasc - Hold home BINTA-inhibitor given ISABELA 4. HLD - Hold home statin given elevated LFTs 5. Coronary artery disease - S/p BMS of proximal LAD July 2017 - Troponin negative - EKG unchanged from prior - Monitor 6. Marijuana abuse - Positive UDS and patient admits to nearly daily use - Counseled on cessation 7. Tobacco abuse - Counseled on cessation DVT prophylaxis: Hold anticoagulation for possible procedure, SCDs Code Status: DNI Discussed Condition With: Patient, Dr. Ramey, Dr. Monzon (5) Nausea & vomiting Qualifiers: Vomiting type: unspecified Vomiting Intractability: non-intractable Qualified Code(s): R11.2 - Nausea with vomiting, unspecified
[2018-06-02] MEDS ORDERED: Acetaminophen 325 MG Tablet PO PRN (15:29)
[2018-06-02] MEDS ORDERED: Bisacodyl 10 MG Supp RECTAL PRN (15:30)
[2018-06-02] MEDS ORDERED: Morphine Inj 4 MG/ML Vial IV.PUSH PRN (15:34)
[2018-06-02] MEDS: Sod Chloride 0.9% Inj 1,000 ML IV.CONT SCH (15:47)
[2018-06-02] MEDS: Senna/Docusate Sodium 8.6/50 MG Tablet PO SCH (21:31)
[2018-06-02] MEDS: Zolpidem Tartrate 5 MG Tablet PO PRN (22:39)
--- NOTE | 2018-06-03 00:06 | P.CONGI ---
History of Present Illness Consult date: 06/02/18 Consult reason: Elevated liver function tests, dilated bile duct Chief complaint: ISABELA, DEHYDRATION, INTRACTABLE N/V History of Present Illness: Patient is a 62-year-old gentleman well-known to our service from prior encounters with known history of choledocholithiasis he actually had a metal biliary stent placed a couple of years ago so as to avoid developing further stones he also had a questionable pancreatic mass at the time but since then that issue has been resolved the patient tells me that 5 days ago he began with dark urine and this was kind of a sudden onset and just a day or 2 ago when he began with abdominal pain mostly right upper quadrant dull aching sharp pain he is currently comfortable in bed with no pain he denies any nausea or vomiting denies any change in appetite or weight loss Review of Systems All other systems reviewed negative except as stated in HPI PMFSH - History History Provided By: Patient - Medical History Medical History: Medical History (Last Updated 06/02/18 @ 16:59 by Florencia Hunter MD) Coronary artery disease H/O: CVA (cerebrovascular accident) Heart attack Hypercholesteremia Hypertension - Surgical History Surgical History: Surgical History (Last Updated 06/02/18 @ 17:02 by Florencia Hunter MD) H/O exploratory laparotomy History of biliary stent insertion History of partial pancreatectomy - Tobacco History Second Hand Smoke Exposure: Yes Tobacco Use In Past 30 Days: Yes Smoking Status: Current every day smoker Tobacco Type: Cigarettes - Alcohol History How Often Do You Have a Drink Containing Alcohol: Never - Substance Use History Substance History: Active Abuse - Substance Use Type Marijuana Status: Active Route Used: Inhalation Frequency: Daily - Travel History Recent Travel in the [place] Within the Last 8 Weeks: No Recent Travel Out of the Country Within the Last 8 Weeks: No - Immunization History Tetanus Immunization: <5 Years Hx Influenza Vaccine This Season: Yes Medications and Allergies Active Medications: Active Medications Acetaminophen (Tylenol) 650 mg PO Q4H PRN PRN Reason: Temp > 100.4 Al Hydroxide/Mg Hydroxide (Milk Of Magnesia Liq) 30 ml PO Q12H PRN PRN Reason: Mild Constipation Amlodipine Besylate (Norvasc) 5 mg PO DAILY TEODORA Bisacodyl (Dulcolax Supp) 10 mg RECTAL DAILY PRN PRN Reason: SEVERE CONSITIPATION Clonidine HCl (Catapres) 0.1 mg PO Q6H PRN PRN Reason: SBP>160, DBP>90 Duloxetine HCl (Cymbalta) 30 mg PO DAILY [facility] Sodium Chloride (Ns Inj) 500 mls @ 0 mls/hr IV.SIG BOLUS [facility] Last Infusion: 06/02/18 14:40 Dose: Infused Sodium Chloride (Ns Inj) 500 mls @ 0 mls/hr IV.SIG BOLUS [facility] Last Infusion: 06/02/18 16:29 Dose: Infused Sodium Chloride (Ns Inj) 1,000 mls @ 100 mls/hr IV.CONT .Q10H [facility] Last Admin: 06/02/18 15:47 Dose: 100 mls/hr Lactulose (Lactulose Liq) 30 ml PO DAILY PRN PRN Reason: SEVERE CONSITIPATION Morphine Sulfate (Morphine Inj) 4 mg IV.PUSH Q4H PRN PRN Reason: PAIN SCALE 1 TO 10 Ondansetron HCl (Zofran Inj) 4 mg IV.PUSH Q6H PRN PRN Reason: NAUSEA OR VOMITING Senna/Docusate Sodium (Tori-Colace) 1 tab PO BID [facility] Last Admin: 06/02/18 21:31 Dose: Not Given Sennosides (Senokot) 17.2 mg PO Q12H PRN PRN Reason: Moderate Constipation Sodium Chloride (Ns Flush) 2 ml IV.FLUSH PRN PRN PRN Reason: FLUSH AFTER USING IV ACCESS Last Admin: 06/02/18 11:26 Dose: 2 ml Zolpidem Tartrate (Ambien) 5 mg PO HS PRN PRN Reason: INSOMNIA Last Admin: 06/02/18 22:39 Dose: 5 mg Allergies Allergy/AdvReac Type Severity Reaction Status Date / Time No Known Allergies Allergy Verified 06/02/18 11:43 Home Medications Medication Instructions Recorded Confirmed Type amlodipine [Norvasc] 5 mg PO DAILY 06/02/18 06/02/18 History atorvastatin 20 mg PO DAILY 06/02/18 06/02/18 History duloxetine 30 mg PO DAILY 06/02/18 06/02/18 History folic acid 1 mg PO DAILY 06/02/18 06/02/18 History lisinopril-hydrochlorothiazide 1 tab PO DAILY 06/02/18 06/02/18 History Exam Vital signs: Vital Signs 06/02/18 10:55 06/02/18 11:12 06/02/18 11:15 Temperature 99 F Pulse Rate 125 H 95 H Respiratory Rate 19 18 Blood Pressure 161/83 H 163/90 H Pulse Oximetry 100 100 99 06/02/18 11:27 06/02/18 12:13 06/02/18 13:48 Temperature 97.8 F 97.8 F Pulse Rate 116 H 107 H Respiratory Rate 16 16 19 Blood Pressure 143/75 H 131/75 Pulse Oximetry 99 99 06/02/18 15:29 06/02/18 15:31 06/02/18 16:00 Temperature 97.8 F 98.1 F Pulse Rate 92 H 81 Respiratory Rate 17 16 Blood Pressure 103/71 118/66 Pulse Oximetry 100 99 100 06/02/18 17:00 06/02/18 17:30 06/02/18 20:00 Temperature 97.8 F 97.8 F 97.5 F L Pulse Rate 89 91 H 72 Respiratory Rate 16 17 18 Blood Pressure 128/76 130/76 120/73 Pulse Oximetry 99 100 06/02/18 23:33 Temperature 97.9 F Pulse Rate 69 Respiratory Rate 18 Blood Pressure 103/64 Pulse Oximetry 100 Intake & Output 06/02/18 06/02/18 06/03/18 06:59 18:59 06:59 Intake Total 1000 / 1000 Output Total 200 / 200 Balance 800 / 800 Weight 65.771 kg Intake: IV 1000 / 1000 NS Inj 500 ML @ Wide Open IV. 1000 / 1000 SIG BOLUS TEODORA Rx#:[id number] Output: Urine 200 / 200 Other: # Voids 1 Weight On Admission 62.1 kg - Constitutional no acute distress - Routine HEENT Exam Head: Present: normocephalic, atraumatic Eye: Present: EOMI ENT: Present: mucous membranes moist - Routine Neck Exam Present: supple - Routine Respiratory Exam Present: CTA bilaterally - Routine Cardiovascular Exam Present: RRR. Absent: murmur, gallop - Routine Abdominal Exam Present: soft, normoactive bowel sounds, tenderness, guarding. Absent: rebound Comments: Mild tenderness of the upper abdomen and right upper quadrant - Routine Extremities Exam Absent: cyanosis, clubbing, edema - Routine Skin Exam Present: dry, warm - Routine Neurological Exam Present: alert, oriented X3 Results - Labs CBC & Chem 7: 06/02/18 11:25 06/02/18 11:25 Labs: Laboratory Results - last 24 hr 06/02/18 06/02/18 06/02/18 11:25 11:25 11:25 WBC RBC Hgb Hct MCV MCH MCHC RDW Plt Count MPV Neut % (Auto) Lymph % (Auto) [place] % (Auto) Eos % (Auto) Baso % (Auto) Neut # (Auto) Lymph # (Auto) [place] # (Auto) Eos # (Auto) Baso # (Auto) WBC Differential Differential Comment PT 15.4 H INR 1.5 APTT 33.6 H Sodium Potassium Chloride Carbon Dioxide Anion Gap BUN Creatinine Estimated GFR Random Glucose Lactic Acid 2.8 H Calcium Total Bilirubin AST ALT Alkaline Phosphatase Total Creatine Kinase 68 Troponin I Less than 0.02 L Total Protein Albumin Lipase Urine Color Urine Clarity Urine pH Ur Specific [place] Urine Protein Urine Glucose (UA) Urine Ketones Urine Occult Blood Urine Nitrate Urine Bilirubin Urine Ictotest Urine Urobilinogen Ur Leukocyte Esterase Urine RBC Urine WBC Ur Squamous Epith Cells Amorphous Sediment Urine Bacteria Micro UA Comment Ur Microscopic Review Urine Culture Comments Urine Opiates Screen Ur Barbiturates Screen Ur Amphetamines Screen U Benzodiazepines Scrn Urine Cocaine Screen U Cannabinoids Screen 06/02/18 06/02/18 06/02/18 11:25 11:25 14:10 WBC 10.8 RBC 3.59 L Hgb 10.3 L Hct 30.7 L MCV 85.5 MCH 28.8 MCHC 33.7 RDW 15.5 Plt Count 170 MPV 9.1 Neut % (Auto) 90.1 H Lymph % (Auto) 3.6 L [place] % (Auto) 6.1 Eos % (Auto) 0.1 Baso % (Auto) 0.1 Neut # (Auto) 9.8 H Lymph # (Auto) 0.4 L [place] # (Auto) 0.7 Eos # (Auto) 0.0 Baso # (Auto) 0.0 WBC Differential . Differential Comment Auto diff final PT INR APTT Sodium 132 L Potassium 3.7 Chloride 99 Carbon Dioxide 21.1 Anion Gap 12 BUN 44 H Creatinine 2.45 H Estimated GFR 33 L Random Glucose 129 H Lactic Acid Calcium 9.2 Total Bilirubin 18.9 H AST 69 H ALT 80 H Alkaline Phosphatase 841 H Total Creatine Kinase Troponin I Total Protein 8.0 Albumin 2.8 L Lipase 22 L Urine Color Urine Clarity Urine pH Ur Specific [place] Urine Protein Urine Glucose (UA) Urine Ketones Urine Occult Blood Urine Nitrate Urine Bilirubin Urine Ictotest Urine Urobilinogen Ur Leukocyte Esterase Urine RBC Urine WBC Ur Squamous Epith Cells Amorphous Sediment Urine Bacteria Micro UA Comment Ur Microscopic Review Urine Culture Comments Urine Opiates Screen Pos H Ur Barbiturates Screen Neg Ur Amphetamines Screen Neg U Benzodiazepines Scrn Neg Urine Cocaine Screen Neg U Cannabinoids Screen Pos H 06/02/18 06/02/18 14:10 18:50 WBC RBC Hgb Hct MCV MCH MCHC RDW Plt Count MPV Neut % (Auto) Lymph % (Auto) [place] % (Auto) Eos % (Auto) Baso % (Auto) Neut # (Auto) Lymph # (Auto) [place] # (Auto) Eos # (Auto) Baso # (Auto) WBC Differential Differential Comment PT INR APTT Sodium Potassium Chloride Carbon Dioxide Anion Gap BUN Creatinine Estimated GFR Random Glucose Lactic Acid 1.2 Calcium Total Bilirubin AST ALT Alkaline Phosphatase Total Creatine Kinase Troponin I Total Protein Albumin Lipase Urine Color Yellow Urine Clarity Hazy H Urine pH 5.0 Ur Specific [place] 1.013 Urine Protein 300 or greater H Urine Glucose (UA) 100 H Urine Ketones Negative Urine Occult Blood Moderate Urine Nitrate Negative Urine Bilirubin Large H Urine Ictotest Positive H Urine Urobilinogen 1.0 Ur Leukocyte Esterase Trace Urine RBC 2 Urine WBC 9 H Ur Squamous Epith Cells 7 Amorphous Sediment Moderate H Urine Bacteria Few H Micro UA Comment Culture indicated Ur Microscopic Review Not Reportable Urine Culture Comments Culture indicated Urine Opiates Screen Ur Barbiturates Screen Ur Amphetamines Screen U Benzodiazepines Scrn Urine Cocaine Screen U Cannabinoids Screen - Imaging Impressions Abdomen/Pelvis CT 06/02/18 12:37 CONCLUSION: 1. No specific abnormality is identified to explain the lower abdominal pain. 2. Severe intrahepatic bile duct dilatation, increased from the prior study. This dilatation is proximal to the metallic bile duct stent that is present. This raises suspicion for occlusion of the stent. Suggest correlating with the appropriate laboratory values to determine if there are findings to indicate bile duct obstruction. 3. Pancreas demonstrates features characteristic of chronic pancreatitis. Main pancreatic duct is dilated measuring 10 mm compared to 15 mm previously. As described above, a metallic common duct stent is present. It is not clear if this was placed for benign or malignant disease. 4. Mild splenomegaly. 5. Soft tissue density in the gastrohepatic ligament region is nonspecific and could represent vessels versus lymphadenopathy. Based on the appearance on the a prior study I suspect it is most likely a blood vessels since there appeared to be multiple collateral blood vessels present. Assessment and Plan - Plan Patient presenting with complaints of upper abdominal pain is noted to be jaundiced with dark urine for the past few days and a CT scan of the abdomen shows significant dilation of the bile duct above the position of the stent At this point patient requires an ERCP to remove the stones Agree with current supportive care and hydration Further recommendations shall depend on his hospital course
[2018-06-03] MEDS: Sod Chloride 0.9% Inj 1,000 ML IV.CONT SCH ×2 (01:52→12:17)
[2018-06-03 06:41] LABS: Hematocrit 25.6 % (39.0-51.0); Hemoglobin 8.6 gm/dL (13.0-17.0); Mean Corpuscular HGB Conc 33.7 % (32.0-36.0); Mean Corpuscular Hemoglobin 28.9 pg (27.0-34.0); Mean Corpuscular Volume 85.8 fL (80.0-100.0); Mean Platelet Volume 9.3 fL (7.0-11.0); Platelet Count 138 th/mm3 (150-450); Red Blood Count 2.98 mil/mm3 (4.50-5.90); Red Cell Distribution Width 15.7 % (11.6-17.2); White Blood Count 8.3 th/mm3 (4.0-11.0)
[2018-06-03 07:37] LABS: Alanine Aminotransferase 58 U/L (12-78); Albumin 2.1 g/dL (3.4-5.0); Alkaline Phosphatase 596 U/L (45-117); Anion Gap 11 meq/L (5-15); Aspartate Aminotransferase 44 U/L (15-37); Blood Urea Nitrogen 43 mg/dL (7-18); Calcium 8.3 mg/dL (8.5-10.1); Carbon Dioxide 20.9 meq/L (21.0-32.0); Chloride 105 meq/L (98-107); Glomerular Filtration Rate 36 mL/min (>89); Glucose,Random 86 mg/dL (74-106); Potassium 3.9 meq/L (3.5-5.1); Sodium 137 meq/L (136-145); Total Protein 6.4 g/dL (6.4-8.2)
[2018-06-03] MEDS: amLODIPine 5 MG Tablet PO SCH (08:07)
[2018-06-03] MEDS: Senna/Docusate Sodium 8.6/50 MG Tablet PO SCH ×2 (08:08→20:25)
--- NOTE | 2018-06-03 14:11 | ECG ---
Date Performed: 06/02/2018 Time Performed: 11:18:26 PTAGE: 62 years EKG: SINUS TACHYCARDIA LOW QRS VOLTAGE IN EXTREMITY LEADS ANTEROSEPTAL MYOCARDIAL INFARCTION ABN ORMAL ECG INTERPRETATION BASED ON A DEFAULT AGE OF 40 YEARS PREVIOUS TRACING : 08/03/2017 05.36 Compared to previous tracing, previously seen anterio r ST elevation and previously seen anterior ST elevation have resloved. Heart rate is faster DOCTOR: Jasper Watson Interpretating Date/Time 06/03/2018 14:09:23
[2018-06-03] MEDS ORDERED: fentaNYL Citrate Inj 100 MCG/2 ML Ampul ONE (15:05)
--- NOTE | 2018-06-03 15:05 | FL ---
EXAM DATE: 06/03/2018 3:00 PM EDT AGE/SEX: 62 years / Male INDICATIONS: Obstruction, stent removal and replacement with sphincter biopsy. CLINICAL DATA: This is the patient's initial encounter. Patient reports that signs and symptoms have been present for 1 day and indicates a pain score of Nonresponsive. MEDICAL/SURGICAL HISTORY: Hypertension. Myocardial infarction. . Abdominal surgery, unspecifie d. COMPARISON: [facility] [place], CHOLANGIOGRAM THRU EXISTING CATHETER, 05/17/2013. . FINDINGS: An ERCP was performed by the ordering physician. The images demonstrate diffuse and prominent intrah epatic and extrahepatic biliary ducts. Common duct stent is in place in the last 2 images of the stud y. CONCLUSION: Diffuse biliary ductal prominence. Placement of common duct stent. Electronically signed by: Josh Veronica MD 06/03/2018 3:03 PM EDT
--- NOTE | 2018-06-03 15:09 | P.PCN ---
Date of procedure: 06/03/18 Pre-op diagnosis: Choledocholithiasis, jaundice, elevated liver function tests, dilated bile Procedure: PROCEDURE PERFORMED ERCP with balloon extraction and stent placement and biopsy INDICATION FOR PROCEDURE As above PROCEDURE: The procedure, risks and benefits were discussed with Patient/POA and informed consent was obtained. Anesthesia sedated Patient with Diprivan the patient underwent general anesthesia. Patient was placed in the left lateral decubitus position. ERCP: Patient was placed in a prone position. The Pentax videoscope was introduced through the oropharynx and advanced to the second portion of the duodenum where the ampula was identified. FINDINGS: The ampulla this appeared to be somewhat irregular with a noted metal stent protruding partially through it with a lot of overgrowth which probably contributed to the buildup of sludge and biliary obstruction I was able to easily cannulate the common bile duct and multiple passes were made with a 12 mm balloon but there was a lot of sludge and debris inside the bile duct and so this was lavaged aggressively and as I lavaged I could see pus coming out suggesting cholangitis aggressive lavage was performed then balloon sweeps and after several sweeps I decided to place a 10 Persian 9 cm stent and biopsies were taken from the ampulla ESTIMATED BLOOD LOSS: None SPECIMENS REMOVED: None COMPLICATIONS: None IMPRESSION: Choledocholithiasis Cholangitis PLAN: Advance diet as tolerated Monitor labs Follow-up with GI post discharge ERCP in 2-3 months preferably with spyglass If all continues to improve tomorrow patient may be discharged from a GI standpoint Anesthesia: ROCIO Surgeon: Jamal Monzon Condition: stable Disposition: floor
[2018-06-03] MEDS ORDERED: *Ondansetron Inj 4 MG/2 ML Vial PERIprocedural Use ONLY ONE (15:28)
--- NOTE | 2018-06-03 17:01 | P.PN ---
Subjective Interval history: Nursing denies any deterioration since last night. Patient is now status post ERCP. Patient did have some nausea and vomiting postprocedure. Patient says his symptoms are improved compared to the time of admission. Physical Exam Vital signs: Vital Signs 06/02/18 17:00 06/02/18 17:30 06/02/18 20:00 Temperature 97.8 F 97.8 F 97.5 F L Pulse Rate 89 91 H 72 Respiratory Rate 16 17 18 Blood Pressure 128/76 130/76 120/73 Pulse Oximetry 99 100 06/02/18 23:33 06/03/18 04:00 06/03/18 08:00 Temperature 97.9 F 97.5 F L 98.0 F Pulse Rate 69 75 78 Respiratory Rate 18 16 18 Blood Pressure 103/64 107/63 125/76 Pulse Oximetry 100 100 100 06/03/18 10:49 06/03/18 14:55 06/03/18 15:00 Temperature 97.7 F Pulse Rate 76 72 Respiratory Rate 16 16 Blood Pressure 117/78 116/77 Pulse Oximetry 100 99 100 06/03/18 15:15 06/03/18 15:30 Temperature Pulse Rate 74 74 Respiratory Rate 16 16 Blood Pressure 119/76 130/76 Pulse Oximetry 99 100 Intake & Output 06/02/18 06/03/18 06/03/18 18:59 06:59 18:59 Intake Total 1000 / 1000 1000 / 1000 1300 / 1300 Output Total 200 / 200 200 / 200 Balance 800 / 800 800 / 800 1300 / 1300 Weight 65.771 kg 63 kg Intake: IV 1000 / 1000 1000 / 1000 1000 / 1000 NS Inj 1,000 ML @ 100 mls/hr IV 1000 / 1000 1000 / 1000 .CONT .Q10H [facility] Rx#:[id number] NS Inj 500 ML @ Wide Open IV. 1000 / 1000 SIG BOLUS [facility] Rx#:[id number] Anesthesia Amount 300 / 300 Output: Urine 200 / 200 200 / 200 Other: # Voids 1 Weight On Admission 62.1 kg Narrative: Abdomen soft, nontender, nondistended Patient lying in bed, awake, appears slightly somnolent which is likely from the general anesthesia wearing off Results - Labs CBC & Chem 7: 06/03/18 05:37 06/03/18 05:37 Laboratory Results - last 24 hr 06/02/18 06/03/18 06/03/18 18:50 05:37 05:37 WBC 8.3 RBC 2.98 L Hgb 8.6 L Hct 25.6 L MCV 85.8 MCH 28.9 MCHC 33.7 RDW 15.7 Plt Count 138 L MPV 9.3 Sodium 137 Potassium 3.9 Chloride 105 Carbon Dioxide 20.9 L Anion Gap 11 BUN 43 H Creatinine 2.26 H Estimated GFR 36 L Random Glucose 86 Lactic Acid 1.2 Calcium 8.3 L D Total Bilirubin 13.6 H AST 44 H ALT 58 Alkaline Phosphatase 596 H Total Protein 6.4 D Albumin 2.1 L D Microbiology 06/02/18 14:10 Clean Catch Urine Urine Culture - Preliminary Immature growth - reincubate - Imaging Impressions GI Procedure 06/03/18 00:00 CONCLUSION: Diffuse biliary ductal prominence. Placement of common duct stent. Assessment and Plan - Assessment (1) Abdominal pain Code(s): R10.9 - Unspecified abdominal pain Status: Acute (2) Transaminitis Code(s): R74.0 - Nonspecific elevation of levels of transaminase and lactic acid dehydrogenase [LDH] Status: Acute (3) Hyperbilirubinemia Code(s): E80.6 - Other disorders of bilirubin metabolism Status: Acute (4) ISABELA (acute kidney injury) Code(s): N17.9 - Acute kidney failure, unspecified Status: Acute (5) Nausea & vomiting Code(s): R11.2 - Nausea with vomiting, unspecified Status: Acute (6) Anemia Code(s): D64.9 - Anemia, unspecified Status: Chronic - Plan 62-year-old black male admitted for abdominal pain 1. Biliary obstruction -Currently status post ERCP, findings suggestive of acute cholangitis, will start antibiotics Pain improved status post procedure 2. ISABELA -Improving, continue IV fluids 3. HTN - Continue home Norvasc - Hold home BINTA-inhibitor given ISABELA 4. HLD - Hold home statin given elevated LFTs 5. Coronary artery disease -Resume home statin and LFTs more stable (5) Nausea & vomiting Qualifiers: Vomiting type: unspecified Vomiting Intractability: non-intractable Qualified Code(s): R11.2 - Nausea with vomiting, unspecified
[2018-06-03] MEDS ORDERED: Lidocaine PF 1% Inj 5 ML Syringe INFILTRATN ONE (18:03)
[2018-06-03] MEDS ORDERED: Succinylcholine Inj 100 MG/5 ML Syringe IV.PUSH ONE (18:03)
[2018-06-03] MEDS ORDERED: Labetalol HCl Inj 100 MG/20 ML Vial IV.CONT ONE (18:03)
[2018-06-03] MEDS: Ciprofloxacin 400 MG/200 ML 400 MG/200 ML PIGGYBACK IV.SIG SCH (20:25)
[2018-06-03] MEDS: Zolpidem Tartrate 5 MG Tablet PO PRN (22:08)
[2018-06-04] MEDS: Sod Chloride 0.9% Inj 1,000 ML IV.CONT SCH ×3 (01:08→17:48)
[2018-06-04] MEDS: Ciprofloxacin 400 MG/200 ML 400 MG/200 ML PIGGYBACK IV.SIG SCH ×2 (05:09→17:47)
[2018-06-04 06:47] LABS: Hematocrit 23.6 % (39.0-51.0); Hemoglobin 8.3 gm/dL (13.0-17.0); Mean Corpuscular HGB Conc 35.3 % (32.0-36.0); Mean Corpuscular Hemoglobin 29.5 pg (27.0-34.0); Mean Corpuscular Volume 83.7 fL (80.0-100.0); Mean Platelet Volume 9.4 fL (7.0-11.0); Platelet Count 141 th/mm3 (150-450); Red Blood Count 2.82 mil/mm3 (4.50-5.90); Red Cell Distribution Width 15.7 % (11.6-17.2)
[2018-06-04 07:06] LABS: Alanine Aminotransferase 58 U/L (12-78); Anion Gap 13 meq/L (5-15); Aspartate Aminotransferase 56 U/L (15-37); Blood Urea Nitrogen 39 mg/dL (7-18); Calcium 8.2 mg/dL (8.5-10.1); Carbon Dioxide 19.7 meq/L (21.0-32.0); Chloride 105 meq/L (98-107); Glomerular Filtration Rate 36 mL/min (>89); Glucose,Random 77 mg/dL (74-106); Potassium 3.8 meq/L (3.5-5.1); Sodium 138 meq/L (136-145)
[2018-06-04 07:09] LABS: Alkaline Phosphatase 577 U/L (45-117); Total Protein 6.4 g/dL (6.4-8.2)
[2018-06-04] MEDS: Folic Acid 1 MG Tablet PO SCH (08:32)
[2018-06-04] MEDS: amLODIPine 5 MG Tablet PO SCH (08:32)
[2018-06-04] MEDS: Senna/Docusate Sodium 8.6/50 MG Tablet PO SCH ×2 (08:33→21:40)
--- NOTE | 2018-06-04 10:39 | P.PNGI ---
Subjective Interval history: Patient is resting in the bed finishing up his breakfast and answering simple questions but not offering much conversation today. Denies any symptoms of nausea vomiting or abdominal pain no obvious bleeding <Sara Membreno - Last Filed: 06/04/18 10:32> Physical Exam Vital signs: Vital Signs 06/03/18 10:49 06/03/18 14:55 06/03/18 15:00 Temperature 97.7 F Pulse Rate 76 72 Respiratory Rate 16 16 Blood Pressure 117/78 116/77 Pulse Oximetry 100 99 100 06/03/18 15:15 06/03/18 15:30 06/03/18 16:00 Temperature 97.5 F L Pulse Rate 74 74 72 Respiratory Rate 16 16 18 Blood Pressure 119/76 130/76 116/60 Pulse Oximetry 99 100 98 06/03/18 20:00 06/04/18 00:00 06/04/18 04:00 Temperature 97.8 F 98 F 97.2 F L Pulse Rate 81 81 76 Respiratory Rate 16 16 16 Blood Pressure 122/63 118/71 115/73 Pulse Oximetry 99 97 100 Intake & Output 06/03/18 06/04/18 06/04/18 18:59 06:59 18:59 Intake Total 1660 / 1660 2320 / 2320 Output Total 375 / 375 675 / 675 275 / 275 Balance 1285 / 1285 1645 / 1645 -275 / -275 Weight 64.5 kg Intake: IV 1000 / 1000 1600 / 1600 NS Inj 1,000 ML @ 100 mls/hr IV 1000 / 1000 1000 / 1000 .CONT .Q10H [facility] Rx#:[id number] Cipro 400 MG/200 ML Inj 400 mg 400 / 400 In 200 ml @ 200 mls/hr IV.SIG Q12H [facility] Rx#:[id number] Flagyl 500 MG Inj 100 ML @ 100 200 / 200 mls/hr IV.SIG Q8H [facility] Rx#: [id number] Oral 360 / 360 720 / 720 Anesthesia Amount 300 / 300 Output: Urine 375 / 375 675 / 675 275 / 275 Other: Date of Last Bowel Movement 06/02/18 # Bowel Movements 0 - Constitutional no acute distress - Routine HEENT Exam Head: Present: normocephalic ENT: Present: mucous membranes moist - Routine Neck Exam Present: supple <Sara Membreno - Last Filed: 06/04/18 10:32> Vital signs: Vital Signs 06/03/18 16:00 06/03/18 20:00 06/04/18 00:00 Temperature 97.5 F L 97.8 F 98 F Pulse Rate 72 81 81 Respiratory Rate 18 16 16 Blood Pressure 116/60 122/63 118/71 Pulse Oximetry 98 99 97 06/04/18 04:00 06/04/18 08:00 06/04/18 12:00 Temperature 97.2 F L 98.2 F 97.9 F Pulse Rate 76 76 80 Respiratory Rate 16 16 16 Blood Pressure 115/73 119/62 122/62 Pulse Oximetry 100 98 99 Intake & Output 06/03/18 06/04/18 06/04/18 18:59 06:59 18:59 Intake Total 1660 / 1660 2320 / 2320 1100 / 1100 Output Total 375 / 375 675 / 675 275 / 275 Balance 1285 / 1285 1645 / 1645 825 / 825 Weight 64.5 kg Intake: IV 1000 / 1000 1600 / 1600 1100 / 1100 NS Inj 1,000 ML @ 100 mls/hr IV 1000 / 1000 1000 / 1000 1000 / 1000 .CONT .Q10H [facility] Rx#:[id number] Cipro 400 MG/200 ML Inj 400 mg 400 / 400 In 200 ml @ 200 mls/hr IV.SIG Q12H [facility] Rx#:[id number] Flagyl 500 MG Inj 100 ML @ 100 200 / 200 100 / 100 mls/hr IV.SIG Q8H [facility] Rx#: [id number] Oral 360 / 360 720 / 720 Anesthesia Amount 300 / 300 Output: Urine 375 / 375 675 / 675 275 / 275 Other: Date of Last Bowel Movement 06/02/18 # Bowel Movements 0 <Clara Blake - Last Filed: 06/04/18 15:47> Results - Labs CBC & Chem 7: 06/04/18 04:01 06/04/18 04:01 Laboratory Results - last 24 hr 06/04/18 06/04/18 04:01 04:01 WBC 7.0 RBC 2.82 L Hgb 8.3 L Hct 23.6 L MCV 83.7 MCH 29.5 MCHC 35.3 RDW 15.7 Plt Count 141 L MPV 9.4 Sodium 138 Potassium 3.8 Chloride 105 Carbon Dioxide 19.7 L Anion Gap 13 BUN 39 H Creatinine 2.25 H Estimated GFR 36 L Random Glucose 77 Calcium 8.2 L Total Bilirubin 13.1 H Direct Bilirubin 10.9 H Indirect Bilirubin 2.2 H AST 56 H ALT 58 Alkaline Phosphatase 577 H Total Protein 6.4 Albumin 2.0 L Microbiology 06/02/18 14:10 Clean Catch Urine Urine Culture - Final 50-100,000 cfu/mL mixed gram positive terrence (probable contaminants) - Imaging Impressions GI Procedure 06/03/18 00:00 CONCLUSION: Diffuse biliary ductal prominence. Placement of common duct stent. <Sara Membreno - Last Filed: 06/04/18 10:32> - Labs CBC & Chem 7: 06/04/18 04:01 06/04/18 04:01 Laboratory Results - last 24 hr 06/04/18 06/04/18 04:01 04:01 WBC 7.0 RBC 2.82 L Hgb 8.3 L Hct 23.6 L MCV 83.7 MCH 29.5 MCHC 35.3 RDW 15.7 Plt Count 141 L MPV 9.4 Sodium 138 Potassium 3.8 Chloride 105 Carbon Dioxide 19.7 L Anion Gap 13 BUN 39 H Creatinine 2.25 H Estimated GFR 36 L Random Glucose 77 Calcium 8.2 L Total Bilirubin 13.1 H Direct Bilirubin 10.9 H Indirect Bilirubin 2.2 H AST 56 H ALT 58 Alkaline Phosphatase 577 H Total Protein 6.4 Albumin 2.0 L Microbiology 06/02/18 14:10 Clean Catch Urine Urine Culture - Final 50-100,000 cfu/mL mixed gram positive terrence (probable contaminants) <Clara Blake - Last Filed: 06/04/18 15:47> Assessment and Plan - Plan History Patient presenting with complaints of upper abdominal pain is noted to be jaundiced with dark urine for the past few days and a CT scan of the abdomen shows significant dilation of the bile duct above the position of the stent At this point patient requires an ERCP to remove the stones Agree with current supportive care and hydration Further recommendations shall depend on his hospital course 06/04/2018 patient is resting in the bed able to eat regular food and denying any symptoms of nausea vomiting or upper abdominal pain. Encourage patient to continue increased oral hydration. labs reviewed showing current hemoglobin 8.3 patient denies any obvious bleeding. PT/INR 1.5, bilirubin 13.1, AST 56 ALT 58 , alkaline phosphatase 577. ERCP performed on 06/03 with stent placement biopsies and balloon extraction. Patient has a history of cholangitis and patient states he still has his gallbladder. Continue to monitor hydration as well as appetite and abdominal pain symptoms which are now controlled. Follow-up in the GI office after discharge. Plan Diet per attending as tolerated Monitor labs with special attention to CBC and LFTs, alkaline phosphatase, bilirubin Cipro ,Flagyl Folic acid, bowel regimen, antiemetics as needed Biopsies pending post ERCP Monitor symptoms of right upper quadrant or abdominal pain Will need follow-up ERCP to remove stent and follow-up with GI on an outpatient basis. Supportive care Patient was seen per myself and Dr. Blake, note was written on his behalf <Sara Membreno - Last Filed: 06/04/18 10:32> - Plan Seen and examined with TRIAGE LICENSED PRACTICAL NURSE, doing well, lfts improving. S/P ercp, gi fu upon dc please. Gi will sign off. Thank you The exam, history, and the medical decision-making described in the above note were completed with the assistance of the mid-level provider. I reviewed and agree with the findings presented. I attest that I had a [id number] encounter with the patient on the same day, and personally performed and documented my assessment and findings in the medical record. <Clraa Blake - Last Filed: 06/04/18 15:47>
--- NOTE | 2018-06-04 16:07 | P.PN ---
Subjective Interval history: Nursing denies any deterioration since last night. Patient himself thinks that he is weak and says he is open to rehab. Denies any abdominal pain or nausea vomiting. Physical Exam Vital signs: Vital Signs 06/03/18 20:00 06/04/18 00:00 06/04/18 04:00 Temperature 97.8 F 98 F 97.2 F L Pulse Rate 81 81 76 Respiratory Rate 16 16 16 Blood Pressure 122/63 118/71 115/73 Pulse Oximetry 99 97 100 06/04/18 08:00 06/04/18 12:00 Temperature 98.2 F 97.9 F Pulse Rate 76 80 Respiratory Rate 16 16 Blood Pressure 119/62 122/62 Pulse Oximetry 98 99 Intake & Output 06/03/18 06/04/18 06/04/18 18:59 06:59 18:59 Intake Total 1660 / 1660 2320 / 2320 1100 / 1100 Output Total 375 / 375 675 / 675 275 / 275 Balance 1285 / 1285 1645 / 1645 825 / 825 Weight 64.5 kg Intake: IV 1000 / 1000 1600 / 1600 1100 / 1100 NS Inj 1,000 ML @ 100 mls/hr IV 1000 / 1000 1000 / 1000 1000 / 1000 .CONT .Q10H [facility] Rx#:[id number] Cipro 400 MG/200 ML Inj 400 mg 400 / 400 In 200 ml @ 200 mls/hr IV.SIG Q12H [facility] Rx#:[id number] Flagyl 500 MG Inj 100 ML @ 100 200 / 200 100 / 100 mls/hr IV.SIG Q8H [facility] Rx#: [id number] Oral 360 / 360 720 / 720 Anesthesia Amount 300 / 300 Output: Urine 375 / 375 675 / 675 275 / 275 Other: Date of Last Bowel Movement 06/02/18 06/04/18 # Bowel Movements 0 1 Narrative: Clear lungs bilaterally, unlabored breathing Abdomen soft, nontender, nondistended Needs considerable exertion in time to be able to stand up and transfer from bed to standing position with walker Results - Labs CBC & Chem 7: 06/04/18 04:01 06/04/18 04:01 Laboratory Results - last 24 hr 06/04/18 06/04/18 04:01 04:01 WBC 7.0 RBC 2.82 L Hgb 8.3 L Hct 23.6 L MCV 83.7 MCH 29.5 MCHC 35.3 RDW 15.7 Plt Count 141 L MPV 9.4 Sodium 138 Potassium 3.8 Chloride 105 Carbon Dioxide 19.7 L Anion Gap 13 BUN 39 H Creatinine 2.25 H Estimated GFR 36 L Random Glucose 77 Calcium 8.2 L Total Bilirubin 13.1 H Direct Bilirubin 10.9 H Indirect Bilirubin 2.2 H AST 56 H ALT 58 Alkaline Phosphatase 577 H Total Protein 6.4 Albumin 2.0 L Microbiology 06/02/18 14:10 Clean Catch Urine Urine Culture - Final 50-100,000 cfu/mL mixed gram positive terrence (probable contaminants) Assessment and Plan - Assessment (1) Abdominal pain Code(s): R10.9 - Unspecified abdominal pain Status: Acute (2) Transaminitis Code(s): R74.0 - Nonspecific elevation of levels of transaminase and lactic acid dehydrogenase [LDH] Status: Acute (3) Hyperbilirubinemia Code(s): E80.6 - Other disorders of bilirubin metabolism Status: Acute (4) ISABELA (acute kidney injury) Code(s): N17.9 - Acute kidney failure, unspecified Status: Acute (5) Nausea & vomiting Code(s): R11.2 - Nausea with vomiting, unspecified Status: Acute (6) Anemia Code(s): D64.9 - Anemia, unspecified Status: Chronic - Plan 62-year-old black male admitted for abdominal pain 1. Biliary obstruction and acute cholangitis -Currently status post ERCP -Continue antibiotics, Pain improved status post procedure 2. ISABELA -Improving, continue IV fluids 3. HTN - Continue home Norvasc - Hold home BINTA-inhibitor given ISABELA 4. HLD - Hold home statin given elevated LFTs 5. Coronary artery disease -Resume home statin and LFTs more stable (5) Nausea & vomiting Qualifiers: Vomiting type: unspecified Vomiting Intractability: non-intractable Qualified Code(s): R11.2 - Nausea with vomiting, unspecified
[2018-06-04] MEDS: Zolpidem Tartrate 5 MG Tablet PO PRN (23:21)
[2018-06-05] MEDS: Sod Chloride 0.9% Inj 1,000 ML IV.CONT SCH ×2 (02:33→16:14)
[2018-06-05] MEDS: Ciprofloxacin 400 MG/200 ML 400 MG/200 ML PIGGYBACK IV.SIG SCH ×2 (06:08→17:31)
[2018-06-05] MEDS: Folic Acid 1 MG Tablet PO SCH (08:08)
[2018-06-05] MEDS: Senna/Docusate Sodium 8.6/50 MG Tablet PO SCH ×2 (08:08→20:55)
[2018-06-05] MEDS: amLODIPine 5 MG Tablet PO SCH (08:08)
[2018-06-05 08:43] LABS: Albumin 1.9 g/dL (3.4-5.0); Anion Gap 11 meq/L (5-15); Aspartate Aminotransferase 72 U/L (15-37); Blood Urea Nitrogen 28 mg/dL (7-18); Carbon Dioxide 19.2 meq/L (21.0-32.0); Chloride 109 meq/L (98-107); Glomerular Filtration Rate 43 mL/min (>89); Glucose,Random 100 mg/dL (74-106); Potassium 3.4 meq/L (3.5-5.1); Sodium 139 meq/L (136-145)
[2018-06-05 08:45] LABS: Alanine Aminotransferase 64 U/L (12-78)
[2018-06-05 08:47] LABS: Alkaline Phosphatase 574 U/L (45-117); Total Protein 6.3 g/dL (6.4-8.2)
--- NOTE | 2018-06-05 11:32 | P.DS ---
Date of admission: 06/02/18 15:30 Primary care physician: Germán Wen Brief History from admission: 62 year old male with history of chronic pancreatitis, CAD, HTN , HLD, and history of CVA presented to the ED for evaluation of abdominal pain, nausea, and vomiting x 5 days. Patient endorses constant generalized abdominal pain during this time and states he was unable to keep anything down. He states within 10-15 minutes of eating anything he would vomit. He denies hematemesis but endorses biliary emesis. He denies sick contacts or recent travel. He states he had Checkers prior to symptom onset. He also endorses chills. He states he has had decreased urination during this time. Denies gross hematuria, dysuria, or flank pain. He endorses intermittent chest pain since his heart attack back in July 2017. Last time he experienced chest pain was last night. He states the pain is on the left side and radiates to the right side. He denies radiation to his jaw or shoulder. He describes the pain as sharp. Patient denies any alcohol use for the past three years. He smokes about 3-4 cigarettes daily. He endorses smoking marijuana daily. Last time he smoked marijuana was 3-4 days ago. Patient denies any significant medical problems running in the family. The patient was hospitalized July 2017 for anterior STEMI with placement of BMS in the proximal LAD. At that time he presented with chest pain, nausea, vomiting, and abdominal pain. Per Dr. Ramey, she spoke to cardiology on the phone and since patient's troponin was negative and EKG was unchanged from prior then to not pursue further cardiac work-up at this time. At the time of my evaluation, patient reports improved symptoms after being given pain medicine, Zofran, and IV fluids. DS: Diagnosis - Discharge Diagnosis (1) Abdominal pain Status: Acute (2) Transaminitis Status: Acute (3) Hyperbilirubinemia Status: Acute (4) ISABELA (acute kidney injury) Status: Acute (5) Nausea & vomiting Status: Acute (6) Anemia Status: Chronic DS: Medications - Discharge Medications Prescriptions: ciprofloxacin HCl [Cipro] 500 mg PO Q12H #6 tab [id number] [Creon] 1 cap PO TID #90 cap metronidazole 500 mg PO TID #12 tab ondansetron 4 mg PO Q6-8H PRN #30 tab PRN Reason: Nausea DS: Summary Hospital Course: Patient was admitted, started on IV fluids for acute kidney injury and acute transaminitis. Underwent ERCP the findings of which were suggestive of acute cholangitis, had stent placed. Had a ampulla biopsy which benign and resolved. Was started on antibiotics. His renal function also significantly improved was tolerating p.o. intake well with improvement in his LFTs. Patient was restarted on home Creon with stabilization of his GI symptoms. Patient has met maximal benefit from hospitalization is clinically stable for discharge to a [facility] facility. - Time Spent with Patient Total time spent providing and/or coordinating discharge services: Less than 30 minutes - Quality: VTE Deep Vein Thrombosis/Pulmonary Embolism Present on Admission: No Exam Vital signs: Vital Signs 06/04/18 12:00 06/04/18 16:00 06/04/18 19:41 Temperature 97.9 F 97.5 F L 97.9 F Pulse Rate 80 74 72 Respiratory Rate 16 16 18 Blood Pressure 122/62 116/66 133/76 Pulse Oximetry 99 100 99 06/04/18 21:47 06/05/18 00:00 06/05/18 04:00 Temperature 97.9 F 97.1 F L Pulse Rate 76 72 Respiratory Rate 18 18 Blood Pressure 122/57 L 136/78 Pulse Oximetry 98 90 L 100 06/05/18 08:00 06/05/18 10:53 Temperature 97.6 F Pulse Rate 72 Respiratory Rate 16 Blood Pressure 130/73 Pulse Oximetry 98 98 Intake & Output 06/04/18 06/05/18 06/05/18 18:59 06:59 18:59 Intake Total 1820 / 1820 1100 / 1100 300 / 300 Output Total 275 / 275 Balance 1545 / 1545 1100 / 1100 300 / 300 Weight 64.3 kg Intake: IV 1400 / 1400 1100 / 1100 300 / 300 NS Inj 1,000 ML @ 100 mls/hr IV 1000 / 1000 1000 / 1000 .CONT .Q10H [facility] Rx#:[id number] Cipro 400 MG/200 ML Inj 400 mg 200 / 200 200 / 200 In 200 ml @ 200 mls/hr IV.SIG Q12H [facility] Rx#:[id number] Flagyl 500 MG Inj 100 ML @ 100 200 / 200 100 / 100 100 / 100 mls/hr IV.SIG Q8H [facility] Rx#: [id number] Oral 420 / 420 Output: Urine 275 / 275 Other: # Voids 6 Date of Last Bowel Movement 06/04/18 06/04/18 # Bowel Movements 1 Narrative: Heart sounds regular rate rhythm, no murmurs Clear lungs bilaterally, unlabored breathing Abdomen soft, nontender, nondistended Results Procedures completed during hospitalization: ERCP with stent placement Pending studies at discharge: Pending at discharge 06/03/18 08:05 Surgical [PTH] Routine Labs on day of discharge: Labs from last 24 hours 06/05/18 06/04/18 07:55 16:40 Sodium 139 Potassium 3.4 L Chloride 109 H Carbon Dioxide 19.2 L Anion Gap 11 BUN 28 H Creatinine 1.93 H 2.21 H Estimated GFR 43 L 37 L Random Glucose 100 Calcium 8.0 L Total Bilirubin 10.0 H AST 72 H ALT 64 Alkaline Phosphatase 574 H Total Protein 6.3 L Albumin 1.9 L - Impressions ITS Impressions Abdomen/Pelvis CT 06/02/18 12:37 CONCLUSION: 1. No specific abnormality is identified to explain the lower abdominal pain. 2. Severe intrahepatic bile duct dilatation, increased from the prior study. This dilatation is proximal to the metallic bile duct stent that is present. This raises suspicion for occlusion of the stent. Suggest correlating with the appropriate laboratory values to determine if there are findings to indicate bile duct obstruction. 3. Pancreas demonstrates features characteristic of chronic pancreatitis. Main pancreatic duct is dilated measuring 10 mm compared to 15 mm previously. As described above, a metallic common duct stent is present. It is not clear if this was placed for benign or malignant disease. 4. Mild splenomegaly. 5. Soft tissue density in the gastrohepatic ligament region is nonspecific and could represent vessels versus lymphadenopathy. Based on the appearance on the a prior study I suspect it is most likely a blood vessels since there appeared to be multiple collateral blood vessels present. GI Procedure 06/03/18 00:00 CONCLUSION: Diffuse biliary ductal prominence. Placement of common duct stent. Discharge Plan - Discharge Disposition Patient Disposition: Discharge to SNF - Discharge Condition Condition: Stable - Discharge Order Discharge Orders: Discharge Order (Routine); Ordered 06/07/18 Ordered By: Jerry Pavon - Physicians Team Primary Care Provider: Germán Wen Attending Provider: Jerry Pavon Other Providers: Jamal Monzon MD ; [employer],Insurance ; [facility] ; [facility],Agency ; [facility],[place]
[2018-06-05 12:59] LABS: Albumin 1.9 g/dL (3.4-5.0)
[2018-06-05 13:03] LABS: Total Protein 6.3 g/dL (6.4-8.2)
[2018-06-05 13:15] LABS: Baso % (Auto) 0.7 % (0.0-2.0); Eos # (Auto) 0.1 th/mm3 (0.0-0.4); Eos % (Auto) 2.4 % (0.0-4.0); Hematocrit 24.4 % (39.0-51.0); Hemoglobin 8.4 gm/dL (13.0-17.0); Lymph # (Auto) 0.8 th/mm3 (1.0-4.8); Lymph % (Auto) 14.8 % (9.0-44.0); Mean Corpuscular HGB Conc 34.4 % (32.0-36.0); Mean Corpuscular Hemoglobin 29.4 pg (27.0-34.0); Mean Corpuscular Volume 85.6 fL (80.0-100.0); Mean Platelet Volume 8.5 fL (7.0-11.0); Mono # (Auto) 0.5 th/mm3 (0.0-0.9); Mono % (Auto) 9.4 % (0.0-8.0); Neut # (Auto) 4.1 th/mm3 (1.8-7.7); Neut % (Auto) 72.7 % (16.0-70.0); Platelet Count 181 th/mm3 (150-450); Red Blood Count 2.85 mil/mm3 (4.50-5.90); Red Cell Distribution Width 15.5 % (11.6-17.2); White Blood Count 5.6 th/mm3 (4.0-11.0)
--- NOTE | 2018-06-05 14:20 | P.PN ---
Subjective Interval history: Nursing reports patient did have some vomiting last night. He tolerated breakfast this morning. He was being discharged in the late morning today originally until he started vomiting again. Discharge has been canceled. Patient denies having abdominal pain, just reports vomiting, no blood. He does report feeling a little lightheaded. Physical Exam Vital signs: Vital Signs 06/04/18 16:00 06/04/18 19:41 06/04/18 21:47 Temperature 97.5 F L 97.9 F Pulse Rate 74 72 Respiratory Rate 16 18 Blood Pressure 116/66 133/76 Pulse Oximetry 100 99 98 06/05/18 00:00 06/05/18 04:00 06/05/18 08:00 Temperature 97.9 F 97.1 F L 97.6 F Pulse Rate 76 72 72 Respiratory Rate 18 18 16 Blood Pressure 122/57 L 136/78 130/73 Pulse Oximetry 90 L 100 98 06/05/18 10:53 06/05/18 12:00 Temperature 97.8 F Pulse Rate 70 Respiratory Rate 16 Blood Pressure 132/72 Pulse Oximetry 98 98 Intake & Output 06/04/18 06/05/18 06/05/18 18:59 06:59 18:59 Intake Total 1820 / 1820 1100 / 1100 300 / 300 Output Total 275 / 275 Balance 1545 / 1545 1100 / 1100 300 / 300 Weight 64.3 kg Intake: IV 1400 / 1400 1100 / 1100 300 / 300 NS Inj 1,000 ML @ 100 mls/hr IV 1000 / 1000 1000 / 1000 .CONT .Q10H [facility] Rx#:[id number] Cipro 400 MG/200 ML Inj 400 mg 200 / 200 200 / 200 In 200 ml @ 200 mls/hr IV.SIG Q12H [facility] Rx#:[id number] Flagyl 500 MG Inj 100 ML @ 100 200 / 200 100 / 100 100 / 100 mls/hr IV.SIG Q8H [facility] Rx#: [id number] Oral 420 / 420 Output: Urine 275 / 275 Other: # Voids 6 Date of Last Bowel Movement 06/04/18 06/04/18 # Bowel Movements 1 Narrative: Abdomen soft, nontender, nondistended Lying in bed, awake and alert, no acute distress Results - Labs CBC & Chem 7: 06/05/18 13:00 06/06/18 04:37 Laboratory Results - last 24 hr 06/04/18 06/05/18 06/05/18 16:40 07:55 07:55 WBC RBC Hgb Hct MCV MCH MCHC RDW Plt Count MPV Neut % (Auto) Lymph % (Auto) Weld % (Auto) Eos % (Auto) Baso % (Auto) Neut # (Auto) Lymph # (Auto) Weld # (Auto) Eos # (Auto) Baso # (Auto) WBC Differential Differential Comment Sodium 139 Potassium 3.4 L Chloride 109 H Carbon Dioxide 19.2 L Anion Gap 11 BUN 28 H Creatinine 2.21 H 1.93 H Estimated GFR 37 L 43 L Random Glucose 100 Calcium 8.0 L Total Bilirubin 10.0 H 10.1 H Direct Bilirubin 8.0 H Indirect Bilirubin 2.1 H AST 72 H 71 H ALT 64 63 Alkaline Phosphatase 574 H 577 H Total Protein 6.3 L 6.3 L Albumin 1.9 L 1.9 L Lipase 27 L 06/05/18 06/05/18 07:55 13:00 WBC 5.6 RBC 2.85 L Hgb 8.4 L Hct 24.4 L MCV 85.6 MCH 29.4 MCHC 34.4 RDW 15.5 Plt Count 181 MPV 8.5 Neut % (Auto) 72.7 H Lymph % (Auto) 14.8 Weld % (Auto) 9.4 H Eos % (Auto) 2.4 Baso % (Auto) 0.7 Neut # (Auto) 4.1 Lymph # (Auto) 0.8 L Weld # (Auto) 0.5 Eos # (Auto) 0.1 Baso # (Auto) 0.0 WBC Differential . Differential Comment Auto diff final Sodium Potassium Chloride Carbon Dioxide Anion Gap BUN Creatinine Estimated GFR Random Glucose Calcium Total Bilirubin Direct Bilirubin Indirect Bilirubin AST ALT Alkaline Phosphatase Total Protein Albumin Lipase Cancelled - Procedures ERCP with stent placement Assessment and Plan - Assessment (1) Abdominal pain Code(s): R10.9 - Unspecified abdominal pain Status: Acute (2) Transaminitis Code(s): R74.0 - Nonspecific elevation of levels of transaminase and lactic acid dehydrogenase [LDH] Status: Acute (3) Hyperbilirubinemia Code(s): E80.6 - Other disorders of bilirubin metabolism Status: Acute (4) ISABELA (acute kidney injury) Code(s): N17.9 - Acute kidney failure, unspecified Status: Acute (5) Nausea & vomiting Code(s): R11.2 - Nausea with vomiting, unspecified Status: Acute (6) Anemia Code(s): D64.9 - Anemia, unspecified Status: Chronic - Plan 62-year-old black male admitted for abdominal pain Nausea vomiting -CBC within normal limits, ordering CMP and lipase. Will consider repeat imaging Biliary obstruction and acute cholangitis -Currently status post ERCP -Continue antibiotics, Pain improved status post procedure 2. ISABELA -Improving, continue IV fluids 3. HTN - Continue home Norvasc - Hold home BINTA-inhibitor given ISABELA 4. HLD - Hold home statin given elevated LFTs 5. Coronary artery disease -Resume home statin and LFTs more stable (5) Nausea & vomiting Qualifiers: Vomiting type: unspecified Vomiting Intractability: non-intractable Qualified Code(s): R11.2 - Nausea with vomiting, unspecified
[2018-06-05 15:43] LABS: Total Protein 6.6 g/dL (6.4-8.2)
[2018-06-06] MEDS: Sod Chloride 0.9% Inj 1,000 ML IV.CONT SCH ×3 (03:13→21:49)
[2018-06-06] MEDS: Ciprofloxacin 400 MG/200 ML 400 MG/200 ML PIGGYBACK IV.SIG SCH ×2 (05:01→17:42)
[2018-06-06 06:26] LABS: Alanine Aminotransferase 66 U/L (12-78); Alkaline Phosphatase 576 U/L (45-117); Anion Gap 10 meq/L (5-15); Aspartate Aminotransferase 83 U/L (15-37); Blood Urea Nitrogen 23 mg/dL (7-18); Calcium 8.2 mg/dL (8.5-10.1); Carbon Dioxide 21.7 meq/L (21.0-32.0); Chloride 109 meq/L (98-107); Glomerular Filtration Rate 51 mL/min (>89); Glucose,Random 86 mg/dL (74-106); Potassium 3.2 meq/L (3.5-5.1); Sodium 141 meq/L (136-145); Total Protein 6.4 g/dL (6.4-8.2)
[2018-06-06] MEDS: amLODIPine 5 MG Tablet PO SCH (09:14)
[2018-06-06] MEDS: metroNIDAZOLE 500 MG Tablet PO SCH ×3 (09:14→21:49)
[2018-06-06] MEDS: Folic Acid 1 MG Tablet PO SCH (09:15)
[2018-06-06] MEDS: Senna/Docusate Sodium 8.6/50 MG Tablet PO SCH ×2 (09:15→21:48)
--- NOTE | 2018-06-06 13:28 | P.PNGI ---
Subjective Interval history: Pt resting in bed, our service has been reconsulted due to continued emesis. Pt reports he was only able to eat about a bite of food last night and then it came right back up. Denies any dysphagia or odynophagia. After breakfast this morning also reports diarrhea, states was not able to make it to the bathroom. Denies blood in stool. Denies any nausea or abdominal pain at present. <Tabatha Moran - Last Filed: 06/06/18 13:21> Interval history: Seen and examined with [employer] TECHNICIAN, recurrent N/V , diarrhea. Labs reviewed. CT abd/ pelvis and stool studies ordered. Diet as tolerated. Zofran. Will follow. The exam, history, and the medical decision-making described in the above note were completed with the assistance of the mid-level provider. I reviewed and agree with the findings presented. I attest that I had a [id number] encounter with the patient on the same day, and personally performed and documented my assessment and findings in the medical record. <Clara Blake - Last Filed: 06/06/18 17:21> Physical Exam Vital signs: Vital Signs 06/05/18 16:00 06/05/18 20:00 06/06/18 00:00 Temperature 97.4 F L 97.7 F 97.1 F L Pulse Rate 78 72 68 Respiratory Rate 16 18 17 Blood Pressure 136/68 141/69 H 135/76 Pulse Oximetry 100 99 97 06/06/18 04:00 06/06/18 08:00 06/06/18 08:24 Temperature 97.1 F L 97.8 F Pulse Rate 68 68 Respiratory Rate 17 17 Blood Pressure 146/81 H 153/83 H Pulse Oximetry 98 99 99 06/06/18 12:00 Temperature 97.7 F Pulse Rate 69 Respiratory Rate 17 Blood Pressure 153/88 H Pulse Oximetry 100 Intake & Output 06/05/18 06/06/18 06/06/18 18:59 06:59 18:59 Intake Total 2080 / 2080 540 / 540 1000 / 1000 Output Total 1200 / 1200 1050 / 1050 Balance 880 / 880 -510 / -510 1000 / 1000 Weight 67.7 kg Intake: IV 1600 / 1600 300 / 300 1000 / 1000 NS Inj 1,000 ML @ 100 mls/hr IV 1000 / 1000 1000 / 1000 .CONT .Q10H [facility] Rx#:[id number] Cipro 400 MG/200 ML Inj 400 mg 400 / 400 200 / 200 In 200 ml @ 200 mls/hr IV.SIG Q12H [facility] Rx#:[id number] Flagyl 500 MG Inj 100 ML @ 100 200 / 200 100 / 100 mls/hr IV.SIG Q8H [facility] Rx#: [id number] Oral 480 / 480 240 / 240 Output: Urine 1200 / 1200 1050 / 1050 Other: Date of Last Bowel Movement 06/04/18 # Bowel Movements 0 - Constitutional no acute distress - Routine HEENT Exam Head: Present: normocephalic, atraumatic - Routine Respiratory Exam Absent: accessory muscle use - Routine Abdominal Exam Present: soft, normoactive bowel sounds. Absent: tenderness, distended - Routine Skin Exam Present: dry, warm - Routine Neurological Exam Present: alert, oriented X3 <Tabatha Moran - Last Filed: 06/06/18 13:21> Vital signs: Vital Signs 06/05/18 20:00 06/06/18 00:00 06/06/18 04:00 Temperature 97.7 F 97.1 F L 97.1 F L Pulse Rate 72 68 68 Respiratory Rate 18 17 17 Blood Pressure 141/69 H 135/76 146/81 H Pulse Oximetry 99 97 98 06/06/18 08:00 06/06/18 08:24 06/06/18 12:00 Temperature 97.8 F 97.7 F Pulse Rate 68 69 Respiratory Rate 17 17 Blood Pressure 153/83 H 153/88 H Pulse Oximetry 99 99 100 Intake & Output 06/05/18 06/06/18 06/06/18 18:59 06:59 18:59 Intake Total 2080 / 2080 540 / 540 1000 / 1000 Output Total 1200 / 1200 1050 / 1050 Balance 880 / 880 -510 / -510 1000 / 1000 Weight 67.7 kg Intake: IV 1600 / 1600 300 / 300 1000 / 1000 NS Inj 1,000 ML @ 100 mls/hr IV 1000 / 1000 1000 / 1000 .CONT .Q10H [facility] Rx#:[id number] Cipro 400 MG/200 ML Inj 400 mg 400 / 400 200 / 200 In 200 ml @ 200 mls/hr IV.SIG Q12H [facility] Rx#:[id number] Flagyl 500 MG Inj 100 ML @ 100 200 / 200 100 / 100 mls/hr IV.SIG Q8H [facility] Rx#: [id number] Oral 480 / 480 240 / 240 Output: Urine 1200 / 1200 1050 / 1050 Other: Date of Last Bowel Movement 06/04/18 # Bowel Movements 0 <Clara Blake - Last Filed: 06/06/18 17:21> Results - Labs CBC & Chem 7: 06/05/18 13:00 06/06/18 04:37 Laboratory Results - last 24 hr 06/05/18 06/05/18 06/06/18 14:33 14:33 04:37 Sodium 141 Potassium 3.2 L Chloride 109 H Carbon Dioxide 21.7 Anion Gap 10 BUN 23 H Creatinine 1.67 H Estimated GFR 51 L Random Glucose 86 Calcium 8.2 L Total Bilirubin 9.6 H 8.4 H Direct Bilirubin 7.9 H Indirect Bilirubin 1.7 H AST 72 H 83 H ALT 67 66 Alkaline Phosphatase 561 H 576 H Total Protein 6.6 6.4 Albumin 2.0 L 2.0 L Lipase 25 L - Procedures ERCP with stent placement <Tabatha Moran - Last Filed: 06/06/18 13:21> - Labs CBC & Chem 7: 06/05/18 13:00 06/06/18 04:37 Laboratory Results - last 24 hr 06/06/18 04:37 Sodium 141 Potassium 3.2 L Chloride 109 H Carbon Dioxide 21.7 Anion Gap 10 BUN 23 H Creatinine 1.67 H Estimated GFR 51 L Random Glucose 86 Calcium 8.2 L Total Bilirubin 8.4 H AST 83 H ALT 66 Alkaline Phosphatase 576 H Total Protein 6.4 Albumin 2.0 L <Clara Blake - Last Filed: 06/06/18 17:21> Assessment and Plan - Plan Assessment: - Elevated LFTs secondary to biliary stent obstruction Known history of choledocholithiasis he actually had a metal biliary stent placed a couple of years ago so as to avoid developing further stones he also had a questionable pancreatic mass at the time but since then that issue has been resolved the patient tells me that 5 days ago he began with dark urine and this was kind of a sudden onset and just a day or 2 ago when he began with abdominal pain mostly right upper quadrant dull aching sharp pain he is currently comfortable in bed with no pain he denies any nausea or vomiting denies any change in appetite or weight loss. Patient presenting with complaints of upper abdominal pain is noted to be jaundiced with dark urine for the past few days and a CT scan of the abdomen shows significant dilation of the bile duct above the position of the stent. S/P ERCP --> The ampulla this appeared to be somewhat irregular with a noted metal stent protruding partially through it with a lot of overgrowth which probably contributed to the buildup of sludge and biliary obstruction I was able to easily cannulate the common bile duct and multiple passes were made with a 12 mm balloon but there was a lot of sludge and debris inside the bile duct and so this was lavaged aggressively and as I lavaged I could see pus coming out suggesting cholangitis aggressive lavage was performed then balloon sweeps and after several sweeps I decided to place a 10 M[place] 9 cm stent and biopsies were taken from the ampulla. Ampulla biopsy --> SMALL INTESTINAL MUCOSA WITH REACTIVE EPITHELIAL CHANGES. (06/06) Our service previously signed off, we have been reconsulted for continued emesis. Pt reports after only a few bites of food last night, that he vomited almost immediately. Denies dysphagia or odynophagia. Also reports after having broth this morning he had explosive diarrhea and was unable to make it to the bathroom. DC has been placed on hold. Repeat lipase WNL. LFTs trending down. Plan: Repeat CT abdomen C. Diff stool studies Continue Cipro/Flagyl Clear liquids Supportive care Further recommendations to follow Pt has been seen and examined by myself and Dr. Blake and this note is written on his behalf <Tabatha Moran - Last Filed: 06/06/18 13:21>
[2018-06-06] MEDS ORDERED: Diatrizoate Meglum/Diatrizoate Sod Liq 9 ML UDC PO ONE (14:45)
--- NOTE | 2018-06-06 17:07 | P.PN ---
Subjective Interval history: Nursing denies any deterioration since last night. Patient himself however reports that he did vomit again last night. He denies having abdominal pain. Seems to be easily irritated when I asked him further questions about his symptoms. Physical Exam Vital signs: Vital Signs 06/05/18 20:00 06/06/18 00:00 06/06/18 04:00 Temperature 97.7 F 97.1 F L 97.1 F L Pulse Rate 72 68 68 Respiratory Rate 18 17 17 Blood Pressure 141/69 H 135/76 146/81 H Pulse Oximetry 99 97 98 06/06/18 08:00 06/06/18 08:24 06/06/18 12:00 Temperature 97.8 F 97.7 F Pulse Rate 68 69 Respiratory Rate 17 17 Blood Pressure 153/83 H 153/88 H Pulse Oximetry 99 99 100 Intake & Output 06/05/18 06/06/18 06/06/18 18:59 06:59 18:59 Intake Total 2080 / 2080 540 / 540 1000 / 1000 Output Total 1200 / 1200 1050 / 1050 Balance 880 / 880 -510 / -510 1000 / 1000 Weight 67.7 kg Intake: IV 1600 / 1600 300 / 300 1000 / 1000 NS Inj 1,000 ML @ 100 mls/hr IV 1000 / 1000 1000 / 1000 .CONT .Q10H [facility] Rx#:[id number] Cipro 400 MG/200 ML Inj 400 mg 400 / 400 200 / 200 In 200 ml @ 200 mls/hr IV.SIG Q12H [facility] Rx#:[id number] Flagyl 500 MG Inj 100 ML @ 100 200 / 200 100 / 100 mls/hr IV.SIG Q8H [facility] Rx#: [id number] Oral 480 / 480 240 / 240 Output: Urine 1200 / 1200 1050 / 1050 Other: Date of Last Bowel Movement 06/04/18 # Bowel Movements 0 Narrative: Abdomen soft, nontender, nondistended Unlabored breathing no acute distress Results - Labs CBC & Chem 7: 06/05/18 13:00 06/06/18 04:37 Laboratory Results - last 24 hr 06/06/18 04:37 Sodium 141 Potassium 3.2 L Chloride 109 H Carbon Dioxide 21.7 Anion Gap 10 BUN 23 H Creatinine 1.67 H Estimated GFR 51 L Random Glucose 86 Calcium 8.2 L Total Bilirubin 8.4 H AST 83 H ALT 66 Alkaline Phosphatase 576 H Total Protein 6.4 Albumin 2.0 L - Procedures ERCP with stent placement Assessment and Plan - Assessment (1) Abdominal pain Code(s): R10.9 - Unspecified abdominal pain Status: Acute (2) Transaminitis Code(s): R74.0 - Nonspecific elevation of levels of transaminase and lactic acid dehydrogenase [LDH] Status: Acute (3) Hyperbilirubinemia Code(s): E80.6 - Other disorders of bilirubin metabolism Status: Acute (4) ISABELA (acute kidney injury) Code(s): N17.9 - Acute kidney failure, unspecified Status: Acute (5) Nausea & vomiting Code(s): R11.2 - Nausea with vomiting, unspecified Status: Acute (6) Anemia Code(s): D64.9 - Anemia, unspecified Status: Chronic - Plan 62-year-old black male admitted for abdominal pain Nausea vomiting -CBC within normal limits, GI notified -lipase wnl, awaiting repeat CT abdomen per GI Biliary obstruction and acute cholangitis -Currently status post ERCP -Continue antibiotics, Pain improved status post procedure 2. ISABELA -Improving, continue IV fluids 3. HTN - Continue home Norvasc - Hold home BINTA-inhibitor given ISABELA 4. HLD - Hold home statin given elevated LFTs 5. Coronary artery disease -Resume home statin and LFTs more stable SCD, no chemical DVT prophylaxis due to hepatic impairment (5) Nausea & vomiting Qualifiers: Vomiting type: unspecified Vomiting Intractability: non-intractable Qualified Code(s): R11.2 - Nausea with vomiting, unspecified
--- NOTE | 2018-06-06 20:13 | CT ---
EXAM DATE: 06/06/2018 7:56 PM EDT AGE/SEX: 62 years / Male INDICATIONS: Vomiting diarrhea CLINICAL DATA: This is the patient's initial encounter. Patient reports that signs and symptoms have been present for 1 day and indicates a pain score of 3/10. MEDICAL/SURGICAL HISTORY: Cardiovascular disease. Hypertension. Cerebrovascular disease. . bi liary stent partial pancreatectomy RADIATION DOSE: 6.64 CTDI (mGy) [place] [facility] [place]/O [place] 06/02/2018. . TECHNIQUE: Multiple contiguous axial images were obtained through the abdomen. Images were obtained using multiple row detector helical technique. Using automated exposure control and adjustment of the mA and/or kV according to patient size, radiation dose was kept as low as reasonably achievable to o btain optimal diagnostic quality images. DICOM format image data is available electronically for rev iew and comparison. FINDINGS: Lower Lungs: There is increased density seen in the posterior inferior right lower lobe. There is muc h less prominent mild subpleural density seen in the posterior medial left lower lobe likely related to atelectasis. There are minimal bilateral pleural effusion. Liver: There is a metallic stent seen in the common bile duct and a plastic stent seen within the com mon bile metallic stent. . There is intrahepatic biliary duct dilatation. There is pneumobilia. Spleen: The spleen appears mildly enlarged without focal splenic lesion. Pancreas: There is dilatation the pancreatic duct measuring up to 1.2 cm. There are scattered locati ons within the pancreas most likely from chronic pancreatitis. Kidneys: There are low-density masses seen in the left kidney. These are nonspecific on this noncont rast CT examination. These measure up to 1.3 cm. They likely represent cysts but again are nonspecifi c. No hydronephrosis is seen. Adrenal Glands: Unremarkable. Aorta: Atherosclerotic calcifications are seen throughout the arterial system. No aneurysm is prese nt. Bowel/Mesentery: There appears to be a bowel anastomosis suture in the right midabdomen. The anastom osis section of bowel measures up to 7 cm in diameter is distended. This is likely related to mid sma ll bowel. The colon is not distended. There is a 2.3 cm soft tissue density seen inferior to the panc reas in the SMA region. This could be related to vascular structures. Adenopathy cannot be excluded. There is hazy density seen throughout the mesentery which could be related to edema. Abdominal Wall: Intact. Retroperitoneum: No evidence of adenopathy in the retrocrural, para-aortic, or deep pelvic regions. Bladder: Contours are smooth. Reproductive Organs: No abnormal masses or calcifications seen. Inguinal: The inguinal region is unremarkable without evidence of adenopathy. Bony Structures: There is degenerative change in the lumbar spine. CONCLUSION: 1. Biliary stents including a metallic stent and internal plastic stent. Continues to be biliary enedelia t dilatation and pneumobilia. 2. Dilatation of pancreatic duct and calcifications likely from chronic pancreatitis. 3. Anastomosis suture seen in the right lateral mid abdomen likely related to a segment of small bow el with dilatation of the segment. This appearance is unchanged. 4. Nonspecific small left renal masses 5. Bibasal areas of suspected atelectasis or consolidation being worse on the right. There are minim al bilateral pleural effusions. Electronically signed by: Saleem Medrano MD 06/06/2018 8:12 PM EDT
[2018-06-07] MEDS: metroNIDAZOLE 500 MG Tablet PO SCH ×2 (05:27→13:24)
[2018-06-07] MEDS: Ciprofloxacin 400 MG/200 ML 400 MG/200 ML PIGGYBACK IV.SIG SCH (05:28)
[2018-06-07] MEDS: Sod Chloride 0.9% Inj 1,000 ML IV.CONT SCH ×2 (06:46→14:29)
[2018-06-07] MEDS: amLODIPine 5 MG Tablet PO SCH (08:43)
[2018-06-07] MEDS: Senna/Docusate Sodium 8.6/50 MG Tablet PO SCH (08:43)
[2018-06-07] MEDS: Folic Acid 1 MG Tablet PO SCH (08:43)
--- NOTE | 2018-06-07 11:40 | P.PNGI ---
Subjective Interval history: Pt resting in bed, denies any nausea or vomiting. States diarrhea this morning about 30 minutes after having broth for breakfast. Denies any abdominal pain. <Tabatha Moran - Last Filed: 06/07/18 11:33> Physical Exam Vital signs: Vital Signs 06/06/18 12:00 06/06/18 16:00 06/06/18 20:00 Temperature 97.7 F 98.0 F 97.3 F L Pulse Rate 69 66 74 Respiratory Rate 17 17 16 Blood Pressure 153/88 H 147/80 H 152/88 H Pulse Oximetry 100 100 100 06/07/18 00:00 06/07/18 04:00 Temperature 97.3 F L 97.3 F L Pulse Rate 66 66 Respiratory Rate 16 16 Blood Pressure 149/87 H 157/82 H Pulse Oximetry 99 99 Intake & Output 06/06/18 06/07/18 06/07/18 18:59 06:59 18:59 Intake Total 1680 / 1680 1200 / 1200 Output Total 400 / 400 500 / 500 Balance 1280 / 1280 700 / 700 Weight 68.4 kg Intake: IV 1200 / 1200 1200 / 1200 NS Inj 1,000 ML @ 100 mls/hr IV 1000 / 1000 1000 / 1000 .CONT .Q10H [facility] Rx#:[id number] Cipro 400 MG/200 ML Inj 400 mg 200 / 200 200 / 200 In 200 ml @ 200 mls/hr IV.SIG Q12H [facility] Rx#:[id number] Oral 480 / 480 0 / 0 Output: Urine 400 / 400 500 / 500 Other: Date of Last Bowel Movement 06/06/18 06/06/18 # Bowel Movements 2 0 - Constitutional no acute distress - Routine HEENT Exam Head: Present: normocephalic, atraumatic - Routine Respiratory Exam Absent: accessory muscle use - Routine Abdominal Exam Present: soft, normoactive bowel sounds. Absent: tenderness, distended - Routine Skin Exam Present: dry, warm - Routine Neurological Exam Present: alert, oriented X3 <Tabatha Moran - Last Filed: 06/07/18 11:33> Vital signs: Vital Signs 06/06/18 16:00 06/06/18 20:00 06/07/18 00:00 Temperature 98.0 F 97.3 F L 97.3 F L Pulse Rate 66 74 66 Respiratory Rate 17 16 16 Blood Pressure 147/80 H 152/88 H 149/87 H Pulse Oximetry 100 100 99 06/07/18 04:00 Temperature 97.3 F L Pulse Rate 66 Respiratory Rate 16 Blood Pressure 157/82 H Pulse Oximetry 99 Intake & Output 06/06/18 06/07/18 06/07/18 18:59 06:59 18:59 Intake Total 1680 / 1680 1200 / 1200 1000 / 1000 Output Total 400 / 400 500 / 500 Balance 1280 / 1280 700 / 700 1000 / 1000 Weight 68.4 kg Intake: IV 1200 / 1200 1200 / 1200 1000 / 1000 NS Inj 1,000 ML @ 100 mls/hr IV 1000 / 1000 1000 / 1000 1000 / 1000 .CONT .Q10H [facility] Rx#:[id number] Cipro 400 MG/200 ML Inj 400 mg 200 / 200 200 / 200 In 200 ml @ 200 mls/hr IV.SIG Q12H [facility] Rx#:[id number] Oral 480 / 480 0 / 0 Output: Urine 400 / 400 500 / 500 Other: Date of Last Bowel Movement 06/06/18 06/06/18 # Bowel Movements 2 0 <Clara Blake - Last Filed: 06/07/18 15:44> Results - Labs CBC & Chem 7: 06/05/18 13:00 06/06/18 04:37 Laboratory Results - last 24 hr 06/07/18 05:30 St C. diff Tox Epid 027 Negative C. difficile (PCR) Negative - Imaging Impressions Abdomen/Pelvis CT 06/06/18 00:00 CONCLUSION: 1. Biliary stents including a metallic stent and internal plastic stent. Continues to be biliary duct dilatation and pneumobilia. 2. Dilatation of pancreatic duct and calcifications likely from chronic pancreatitis. 3. Anastomosis suture seen in the right lateral mid abdomen likely related to a segment of small bowel with dilatation of the segment. This appearance is unchanged. 4. Nonspecific small left renal masses 5. Bibasal areas of suspected atelectasis or consolidation being worse on the right. There are minimal bilateral pleural effusions. - Procedures ERCP with stent placement <Tabatha Moran - Last Filed: 06/07/18 11:33> - Labs CBC & Chem 7: 06/05/18 13:00 06/06/18 04:37 Laboratory Results - last 24 hr 06/07/18 05:30 St C. diff Tox Epid 027 Negative C. difficile (PCR) Negative - Imaging Impressions Abdomen/Pelvis CT 06/06/18 00:00 CONCLUSION: 1. Biliary stents including a metallic stent and internal plastic stent. Continues to be biliary duct dilatation and pneumobilia. 2. Dilatation of pancreatic duct and calcifications likely from chronic pancreatitis. 3. Anastomosis suture seen in the right lateral mid abdomen likely related to a segment of small bowel with dilatation of the segment. This appearance is unchanged. 4. Nonspecific small left renal masses 5. Bibasal areas of suspected atelectasis or consolidation being worse on the right. There are minimal bilateral pleural effusions. <HaydenElizabeth - Last Filed: 06/07/18 15:44> Assessment and Plan - Plan Assessment: - Elevated LFTs secondary to biliary stent obstruction Known history of choledocholithiasis he actually had a metal biliary stent placed a couple of years ago so as to avoid developing further stones he also had a questionable pancreatic mass at the time but since then that issue has been resolved the patient tells me that 5 days ago he began with dark urine and this was kind of a sudden onset and just a day or 2 ago when he began with abdominal pain mostly right upper quadrant dull aching sharp pain he is currently comfortable in bed with no pain he denies any nausea or vomiting denies any change in appetite or weight loss. Patient presenting with complaints of upper abdominal pain is noted to be jaundiced with dark urine for the past few days and a CT scan of the abdomen shows significant dilation of the bile duct above the position of the stent. S/P ERCP --> The ampulla this appeared to be somewhat irregular with a noted metal stent protruding partially through it with a lot of overgrowth which probably contributed to the buildup of sludge and biliary obstruction I was able to easily cannulate the common bile duct and multiple passes were made with a 12 mm balloon but there was a lot of sludge and debris inside the bile duct and so this was lavaged aggressively and as I lavaged I could see pus coming out suggesting cholangitis aggressive lavage was performed then balloon sweeps and after several sweeps I decided to place a 10 Romanian 9 cm stent and biopsies were taken from the ampulla. Ampulla biopsy --> SMALL INTESTINAL MUCOSA WITH REACTIVE EPITHELIAL CHANGES. (06/06) Our service previously signed off, we have been reconsulted for continued emesis. Pt reports after only a few bites of food last night, that he vomited almost immediately. Denies dysphagia or odynophagia. Also reports after having broth this morning he had explosive diarrhea and was unable to make it to the bathroom. DC has been placed on hold. Repeat lipase WNL. LFTs trending down. (06/07) Denies any further nausea or vomiting. Reports diarrhea this morning 30 minutes after eating his broth. Denies abdominal pain. Repeat CT Abdomen and pelvis noted from yesterday, continued biliary duct dilatation and pneumobilia, no significant changes. C. Diff testing negative. Of note, pt has chronic pancreatitis, states was on Creon at home. Could be the cause for the post prandial diarrhea, will restart this. Plan: Start Creon Advance diet- low fat Monitor stool count Continue Cipro/Flagyl Supportive care Further recommendations to follow Pt has been seen and examined by myself and Dr. Blake and this note is written on his behalf <Tabatha Moran - Last Filed: 06/07/18 11:33> - Plan Seen and examined with [facility], better today. CT -ve for acute issues. C diff -ve. Start creon. The exam, history, and the medical decision-making described in the above note were completed with the assistance of the mid-level provider. I reviewed and agree with the findings presented. I attest that I had a [id number] encounter with the patient on the same day, and personally performed and documented my assessment and findings in the medical record. <Clara Blake - Last Filed: 06/07/18 15:44>
[2018-06-07] MEDS ORDERED: Lipase/Protease/Amylase 24/76/120 DR Capsule PO SCH (13:00)
[2018-06-07 17:15] VITALS: BP 136/86; PULSE 77; RESP 17; TEMP 97.9; O2SAT 100
== END 2018-06-07 18:04 ==
LOC: NEPE 10:53 → NEDA 15:30 → N04 17:18
PROVIDERS: ADMIT Hospitalist; ATTEND Hospitalist